=== PATIENT | female | born 1940 | race Hispanic/Latino ===

== ENCOUNTER 2017-01-16 10:56 | Day surgery (SDC) | payer MEDICARE, BC ==
[2017-01-08 09:12] VITALS: BMI 25.3
[2017-01-16] MEDS ORDERED: Propofol 10 mg/ml Inj (20 ML) ONE (11:42)
[2017-01-16] MEDS ORDERED: Sodium Chloride 0.9% 1,000 ML IV SCH (12:15)
[2017-01-16 14:40] VITALS: BP 139/76; PULSE 64; RESP 16; TEMP 97.6; O2SAT 98
== END 2017-01-16 13:40 | disposition home or self-care (01) ==
LOC: ENDO 10:56
PROVIDERS: ATTEND Internal Medicine Gastroenterology
DX: K25.9 Gastric ulcer, unspecified as acute or chronic, without hemorrhage or perforation (principal); K26.9 Duodenal ulcer, unspecified as acute or chronic, without hemorrhage or perforation; K29.50 Unspecified chronic gastritis without bleeding; E11.9 Type 2 diabetes mellitus without complications; E78.5 Hyperlipidemia, unspecified
CPT/HCPCS: 43239; 88305; 88312; 88342; J2001; J2704; J3010; J7040 ×2

== ENCOUNTER 2017-03-20 09:17 | Day surgery (SDC) | payer MEDICARE, BC ==
[2017-03-20 09:48] VITALS: BMI 25.3
[2017-03-20] MEDS ORDERED: Propofol 10 mg/ml Inj (20 ML) ONE (10:49)
[2017-03-20] MEDS ORDERED: Lidocaine 1% Inj (20ml) ONE (10:49)
[2017-03-20] MEDS ORDERED: Sodium Chloride 0.9% 1,000 ML IV SCH (11:15)
[2017-03-20 11:29] VITALS: PULSE 63
[2017-03-20 12:05] VITALS: BP 155/81; RESP 18; TEMP 98.6; O2SAT 98
== END 2017-03-20 12:47 | disposition home or self-care (01) ==
LOC: ENDO 09:17
PROVIDERS: ATTEND Internal Medicine Gastroenterology
DX: K21.0 Gastro-esophageal reflux disease with esophagitis (principal); K29.50 Unspecified chronic gastritis without bleeding; K31.7 Polyp of stomach and duodenum; E11.9 Type 2 diabetes mellitus without complications; E78.5 Hyperlipidemia, unspecified
CPT/HCPCS: 43239; 82948; 88305; 88312; 88342; J2704; J7040 ×2

== ENCOUNTER 2018-07-28 09:27 | Day surgery (SDC) | payer MEDICARE, BC ==
[2018-07-28] MEDS ORDERED: Propofol 10 mg/ml Inj (20 ML) ONE (10:52)
[2018-07-28 13:09] VITALS: PULSE 69
[2018-07-28 14:27] VITALS: BP 140/76; RESP 16; TEMP 97.9; O2SAT 97
== END 2018-07-28 14:02 | disposition home or self-care (01) ==
LOC: ENDO 09:27
PROVIDERS: ATTEND Internal Medicine Gastroenterology
DX: K22.70 Barrett's esophagus without dysplasia (principal); K29.50 Unspecified chronic gastritis without bleeding; E11.9 Type 2 diabetes mellitus without complications
CPT/HCPCS: 43239; 88305; 88312; 88342; J2704; J7040

== ENCOUNTER 2018-11-12 18:48 | Inpatient (IN) | payer MEDICARE, BC ==
[2018-11-12 19:22] VITALS: BMI 27.4
[2018-11-12 20:11] LABS: BASO # 0.04 K/mm3 (0.0-2.0); BASO % 0.3 % (0.0-3.0); EOS # 0.2 (0.0-0.7); EOS % 1.3 % (1.5-5.0); HEMOGLOBIN 14.7 g/dL (12.0-16.0); LYMPH # 3.5 (1.2-3.4); LYMPH % 23.4 % (22.0-35.0); MEAN CELL VOLUME 87.3 fl (80.0-105.0); MEAN CORPUSCULAR HEMOGLOBIN 30.1 pg (25.0-35.0); MEAN CORPUSCULAR HGB CONC 34.4 g/dl (31.0-37.0); MEAN PLATELET VOLUME 9.9 fl (7.0-11.0); MONO # 0.8 (0.1-0.6); MONO % 5.6 % (1.0-6.0); RBC 4.89 10^6/uL (3.5-6.1); RED CELL DISTRIBUTION WIDTH 12.9 % (11.5-14.5); WHITE BLOOD COUNT 14.9 10^3/uL (4.5-11.0)
[2018-11-12 20:15] LABS: ALB/GLOB RATIO 1.4 (1.1-1.8); ALBUMIN 4.4 g/dL (3.0-4.8); ALT/SGPT 32 U/L (7-56); AST/SGOT 33 U/L (14-36); BLOOD UREA NITROGEN 19 mg/dL (7-21); GFR NON-AFRICAN AMERICAN > 60
[2018-11-12 20:22] LABS: INR 1.16; PARTIAL THROMBOPLASTIN TIME 33.3 Seconds (26.9-38.3); PROTHROMBIN TIME 12.9 SECONDS (9.4-12.5)
[2018-11-12 20:26] LABS: TROPONIN I < 0.01 ng/mL
[2018-11-12 21:05] LABS: URINE BILIRUBIN NEGATIVE (NEGATIVE); URINE BLOOD NEGATIVE (NEGATIVE); URINE GLUCOSE (UA) NEGATIVE (NEGATIVE); URINE LEUKOCYTE ESTERASE MODERATE Leu/uL (NEGATIVE); URINE PROTEIN TRACE mg/dL (<30 mg/dL); URINE UROBILINOGEN 0.2 E.U./dL (<1 E.U./dL)
[2018-11-12 21:06] LABS: URINE APPEARANCE CLEAR (CLEAR); URINE COLOR LIGHT YELLOW (YELLOW)
[2018-11-12 21:09] LABS: URINE BACTERIA FEW /hpf
[2018-11-12] MEDS ORDERED: cefTRIAXone 1 gm 1 GM/100 ML BAG IVPB STA (21:13)
--- NOTE | 2018-11-12 22:06 | ED PDOC ---
Arrival/HPI - General Chief Complaint: Syncope Time Seen by Provider: 11/12/18 19:14 Historian: Patient, Spouse - History of Present Illness Narrative History of Present Illness (Text): 11/12/18 22:10 78 year old female, with history of hypertension and diabetes, presents to emergency department from home s/p reported syncopal episode. Patient reports she was in the bedroom putting her dog's toys away, and woken up by her after. It is unclear what happened during the incident. He notes she was at baseline before and after the episode. Patient currently complains of back pain but denies any other complaints. Time/Duration: Prior to Arrival Symptom Onset: Gradual Symptom Course: Unchanged Activities at Onset: Light Context: Home Past Medical History - Provider Review Nursing Documentation Reviewed: Yes - Infectious Disease Hx of Infectious Diseases: None - Cardiac Hx Hypertension: Yes Hx Pacemaker: No - Neurological Hx Paralysis: No - Endocrine/Metabolic Hx Diabetes Mellitus Type 2: Yes - Hematological/Oncological Hx Blood Transfusions: No Hx Blood Transfusion Reaction: No Other/Comment: Hematochromatosis - Musculoskeletal/Rheumatological Hx Musculoskeletal Disorders: Yes - Psychiatric Hx Emotional Abuse: No Hx Physical Abuse: No Hx Substance Use: No - Surgical History Hx Cholecystectomy: Yes Other/Comment: Back surgery. Colon surgery. Knee surgery - Anesthesia Hx Anesthesia Reactions: No Hx Malignant Hyperthermia: No - Suicidal Assessment Feels Threatened In Home Enviroment: No Family/Social History - Physician Review Nursing Documentation Reviewed: Yes Family/Social History: Unknown Family HX Smoking Status: Never Smoked Hx Alcohol Use: Yes (ON OCCASION) Hx Substance Use: No Allergies/Home Meds Allergies/Adverse Reactions: Allergies No Known Allergies Allergy (Verified 11/12/18 19:22) Home Medications: Home Meds Medication Instructions Recorded Confirmed Aspirin [Aspir 81] 81 mg PO MWF 04/22/12 11/12/18 [place]-3/Dha/Epa/Fish Oil [[place]-3 500 mg PO BID 04/22/12 11/12/18 Fish Oil] Ezetimibe [Zetia] 10 mg PO DAILY 10/16/15 11/12/18 Multivit-Min/Iron/Folic/Lutein 1 tab PO BID 10/16/15 11/12/18 [Centrum Silver Women Tablet] buPROPion XL [Wellbutrin] 150 mg PO QAM 10/16/15 11/12/18 Calcium Carbonate [Calcium] 500 mg PO BID 01/08/17 11/12/18 Repaglinide [Prandin] 2 mg PO TID 01/08/17 11/12/18 Turmeric Root Extract [[facility] 500 mg PO DAILY 03/20/17 11/12/18 Turmeric] GlipiZIDE [Glipizide] 5 mg PO BID 07/22/18 11/12/18 Insulin Glargine, Recombina 24 unit SC HS 07/28/18 11/12/18 [Lantus] Ranitidine HCl [Zantac] 150 mg PO BID 07/28/18 11/12/18 Sertraline [Zoloft] 50 mg PO DAILY 07/28/18 11/12/18 Glucosamine Sulfate Dipot Chlr 1 tab PO BID 11/12/18 11/12/18 [Glucosamine] Lisinopril [Zestril] 10 mg PO DAILY 11/12/18 11/12/18 Review of Systems - Physician Review All systems were reviewed & negative as marked: Yes - Review of Systems Constitutional: absent: Fevers Respiratory: absent: SOB, Cough Cardiovascular: absent: Chest Pain Gastrointestinal: absent: Abdominal Pain, Diarrhea, Nausea, Vomiting Genitourinary Female: absent: Urine Output Changes Musculoskeletal: Back Pain. absent: Neck Pain Skin: absent: Rash Neurological: absent: Headache, Dizziness Physical Exam Vital Signs Reviewed: Yes Vital Signs Temp Pulse Resp BP Pulse Ox 11/12/18 21:07 82 16 139/69 95 11/12/18 19:30 98.7 F 92 H 18 146/83 95 Temperature: Afebrile Blood Pressure: Normal Pulse: Regular Respiratory Rate: Normal Appearance: Positive for: Well-Appearing, Non-Toxic, Comfortable Pain Distress: None Mental Status: Positive for: Alert and Oriented X 3 - Systems Exam Head: Present: Atraumatic, Normocephalic Pupils: Present: PERRL Extroacular Muscles: Present: EOMI Conjunctiva: Present: Normal Mouth: Present: Moist Mucous Membranes Neck: Present: Normal Range of Motion Respiratory/Chest: Present: Clear to Auscultation, Good Air Exchange. No: Respiratory Distress, Accessory Muscle Use Cardiovascular: Present: Regular Rate and Rhythm, Normal S1, S2. No: Murmurs Abdomen: No: Tenderness, Distention, Peritoneal Signs Back: Present: Other (paralumbar and parathoracic tenderness, no stepoff ). No: Midline Tenderness Upper Extremity: Present: Normal Inspection. No: Cyanosis, Edema Lower Extremity: Present: Normal Inspection. No: Edema Neurological: Present: GCS=15, CN II-XII Intact, Speech Normal Skin: Present: Warm, Dry, Normal Color. No: Rashes Psychiatric: Present: Alert, Oriented x 3, Normal Insight, Normal Concentration Medical Decision Making ED Course and Treatment: 11/12/18 22:19 Impression: 78 year old female presents to emergency department s/p syncopal episode prior to arrival. ro intracrnial cardiac metabolic etiology Plan: -- CT Head -- EKG -- Labs -- Chest X-ray -- Urinalysis -- Reassess and disposition Prior Visits: Notes and results from previous visits were reviewed. Progress Notes: 11/12/18 22:25 CT Head, reviewed by radiologist: IMPRESSION: 1. No acute intracranial abnormality. 2. Mild age-appropriate diffuse cerebral and cerebellar atrophy. 3. Mild chronic microvascular disease. 4. Atherosclerotic vascular plaquing as described above. Electronically signed on Nov 12, 2018 9:41:39 PM EDT by: Killian Harding M.D., M.B.A., Certified By [employer] Trained MRI and CT Specialist 11/12/18 23:46 labs neg. cxr neg as read by me discussed with rosana request hospiatlist admission will consult. - Lab Interpretations Lab Results: PT 12.9 SECONDS (9.4-12.5) H 11/12/18 19:55 INR 1.16 11/12/18 19:55 APTT 33.3 Seconds (26.9-38.3) 11/12/18 19:55 Troponin I < 0.01 ng/mL 11/12/18 19:55 Total Bilirubin 0.4 mg/dL (0.2-1.3) 11/12/18 19:55 AST 33 U/L (14-36) 11/12/18 19:55 ALT 32 U/L (7-56) 11/12/18 19:55 Alkaline Phosphatase 57 U/L (38-126) 11/12/18 19:55 Total Protein 7.5 g/dL (5.8-8.3) 11/12/18 19:55 Albumin 4.4 g/dL (3.0-4.8) 11/12/18 19:55 Globulin 3.1 gm/dL 11/12/18 19:55 Albumin/Globulin Ratio 1.4 (1.1-1.8) 11/12/18 19:55 Urine Color Light yellow (YELLOW) 11/12/18 20:47 Urine Appearance Clear (CLEAR) 11/12/18 20:47 Urine pH 6.0 (4.7-8.0) 11/12/18 20:47 Ur Specific [place] >= 1.030 (1.005-1.035) 11/12/18 20:47 Urine Protein Trace mg/dL (<30 mg/dL) H 11/12/18 20:47 Urine Glucose (UA) Negative mg/dL (NEGATIVE) 11/12/18 20:47 Urine Ketones Negative mg/dL (NEGATIVE) 11/12/18 20:47 Urine Blood Negative (NEGATIVE) 11/12/18 20:47 Urine Nitrate Negative (NEGATIVE) 11/12/18 20:47 Urine Bilirubin Negative (NEGATIVE) 11/12/18 20:47 Urine Urobilinogen 0.2 E.U./dL (<1 E.U./dL) 11/12/18 20:47 Ur Leukocyte Esterase Moderate [place]ac[place]a/uL (NEGATIVE) H 11/12/18 20:47 Urine RBC None /hpf (0-2) 11/12/18 20:47 Urine WBC 10 - 15 /hpf (0-6) H 11/12/18 20:47 Ur Epithelial Cells None /hpf (0-5) 11/12/18 20:47 Urine Bacteria Few /hpf (NONE) 11/12/18 20:47 - RAD Interpretation Radiology Orders: 11/12/18 19:35 HEAD W/O CONTRAST [CT] Stat CHEST PORTABLE [RAD] Stat DORSAL (THORACIC) SPINE [RAD] Stat LS SPINE AP/LAT [RAD] Stat - Medication Orders Current Medication Orders: Ceftriaxone Sodium (Rocephin 1 Gram Ivpb) 1 gm in 100 mls @ 100 mls/hr IVPB STAT STA; Protocol Stop: 11/12/18 22:12 Last Admin: 11/12/18 21:29 Dose: 100 mls/hr eMAR Start Stop Document 11/12/18 21:29 KV (Rec: 11/12/18 21:29 KV [id number]) Intravenous Solution Start Date 11/12/18 Start Time 21:29 Discontinued Medications Ceftriaxone Sodium (Rocephin 1 Gram Ivpb) 1 gm in 100 mls @ 100 mls/hr IVPB DAILY LENY; Protocol Ketorolac Tromethamine (Toradol) 30 mg IVP STAT STA Stop: 11/12/18 21:48 Last Admin: 11/12/18 21:55 Dose: 30 mg MAR Pain Assessment Document 11/12/18 21:55 KV (Rec: 11/12/18 21:55 KV [id number]) Pain Reassessment Is this a pain reassessment? No Sleep Is patient sleeping during reassessment? No Presence of Pain Presence of Pain Yes Pain Scale Used Protocol: PSCALES Pain Scale Used Numeric Location Left, Right or Bilateral Left Upper or Lower Lower Pain Location Body Site Back Description Description Constant Intensity of Pain at present 6 IVP Administration Document 11/12/18 21:55 KV (Rec: 11/12/18 21:55 KV [id number]) Charges for Administration # of IVP Administrations 1 - Scribe Statement The provider has reviewed the documentation as recorded by the Scribe Neeraj Peter All medical record entries made by the Scribe were at my direction and personally dictated by me. I have reviewed the chart and agree that the record accurately reflects my personal performance of the history, physical exam, medical decision making, and the department course for this patient. I have also personally directed, reviewed, and agree with the discharge instructions and disposition. Disposition/Present on Arrival - Present on Arrival Any Indicators Present on Arrival: No History of DVT/PE: No History of Uncontrolled Diabetes: No Urinary Catheter: No History of Decub. Ulcer: No History Surgical Site Infection Following: None - Disposition Have Diagnosis and Disposition been Completed?: Yes Diagnosis: Syncope Disposition: HOSPITALIZED Disposition Time: 22:00 Condition: STABLE
--- NOTE | 2018-11-12 22:27 | CP.PCM.HP ---
<JajaaydinfranceLatasha - Last Filed: 11/12/18 23:15> History of Present Illness - History of Present Illness History of Present Illness: PGY1 Medicine History and Physical Exam Note for Dr. Montoya Patient is a 78 year old female, with history of HTN, hemochromatosis, and d iabetes who presents to [facility] ED s/p reported syncopal episode. Patient reports she was in the bedroom putting her dog's toys away, and woken up by her after. It is unclear what happened during the incident. Per Patient's , the patient was at baseline before and after the episode. Patient admits to LOC and hitting her head, however she denies bruising, laceration, chest pain, shortness of breath, abdominal pain, nausea, vomiting, diarrhea, dysuria, fever, and/or chills. PMH: hemochromatosis, Diabetes, HTN PSH: Allergies: Medications: per MAR Social Hx: Family Hx PMD: Dr. Amaro Heme-Onc: Dr. Cervantes Syncope, unknown etiology - Cardiology consulted (Dr. Lee); recommendations appreciated - Neurology consulted (Dr. Meng); recommendations appreciated - F/U CMP, Mg, Phos, Vitamin B12, Folate, TSH - Troponin Q6H x2 - EKG Q6H x2 - Neuro checks Q4 - Fall precaution - Orthostatics - Monitor Leukocytosis - Afebrile - 1 dose ABX given in ED - F/U Urine culture - F/U Blood culture - Monitor CBC Abnormal Urinalysis - F/U Urine culture - Antibiotics HTN - Continue home medications - Monitor Diabetes Mellitus - ISS - Hypoglycemic protocol - ACCU checks ACHS - Low carb diet - F/U Hemoglobin A1C - Monitor PPx: - GI: pepcid daily - DVT: SCD Present on Admission - Present on Admission Any Indicators Present on Admission: No History of DVT/PE: No History of Uncontrolled Diabetes: No Urinary Catheter: No Decubitus Ulcer Present: No Review of Systems - Review of Systems All systems: reviewed and no additional remarkable complaints except (as mentioned in HPI) Past Patient History - Infectious Disease Hx of Infectious Diseases: None - Past Social History Smoking Status: Never Smoked - CARDIAC Hx Hypertension: Yes Hx Pacemaker: No - NEUROLOGICAL Hx Paralysis: No - ENDOCRINE/METABOLIC Hx Diabetes Mellitus Type 2: Yes - HEMATOLOGICAL/ONCOLOGICAL Hx Blood Transfusions: No Hx Blood Transfusion Reaction: No Other/Comment: Hematochromatosis - MUSCULOSKELETAL/RHEUMATOLOGICAL Hx Musculoskeletal Disorders: Yes - PSYCHIATRIC Hx Emotional Abuse: No Hx Physical Abuse: No Hx Substance Use: No - SURGICAL HISTORY Hx Cholecystectomy: Yes Other/Comment: Back surgery. Colon surgery. Knee surgery - ANESTHESIA Hx Anesthesia Reactions: No Hx Malignant Hyperthermia: No Meds Allergies/Adverse Reactions: Allergies Allergy/AdvReac Type Severity Reaction Status Date / Time No Known Allergies Allergy Verified 11/12/18 19:22 Physical Exam - Constitutional Appears: Non-toxic, No Acute Distress - Head Exam Head Exam: ATRAUMATIC, NORMAL INSPECTION, NORMOCEPHALIC - Eye Exam Eye Exam: EOMI, Normal appearance, PERRL Pupil Exam: NORMAL ACCOMODATION - ENT Exam ENT Exam: Mucous Membranes Dry, Normal Exam - Neck Exam Neck exam: Positive for: Normal Inspection - Respiratory Exam Respiratory Exam: Clear to Auscultation Bilateral, NORMAL BREATHING PATTERN. absent: Accessory Muscle Use, Chest Wall Tenderness, Rhonchi, Wheezes, Respirato ry Distress - Cardiovascular Exam Cardiovascular Exam: REGULAR RHYTHM, +S1, +S2 - GI/Abdominal Exam GI & Abdominal Exam: Normal Bowel Sounds, Soft. absent: Tenderness - Extremities Exam Extremities exam: Positive for: normal inspection, pedal pulses present. Negative for: pedal edema, tenderness - Back Exam Back exam: paraspinal tenderness - Neurological Exam Neurological exam: Alert, CN II-XII Intact, Oriented x3 - Psychiatric Exam Psychiatric exam: Normal Affect, Normal Mood - Skin Skin Exam: Dry, Intact, Normal Color, Warm Results - Vital Signs Recent Vital Signs: Last Vital Signs Temp 98.7 F 11/12/18 19:30 Pulse 82 11/12/18 21:07 Resp 16 11/12/18 21:07 BP 139/69 11/12/18 21:07 Pulse Ox 95 11/12/18 21:07 - Labs Result Diagrams: 11/12/18 19:55 11/12/18 19:55 Labs: Laboratory Results - last 24 hr 11/12/18 11/12/18 11/12/18 19:55 19:55 19:55 WBC 14.9 H RBC 4.89 Hgb 14.7 Hct 42.7 MCV 87.3 MCH 30.1 MCHC 34.4 RDW 12.9 Plt Count 253 MPV 9.9 Neut % (Auto) 69.4 H Lymph % (Auto) 23.4 [place] % (Auto) 5.6 Eos % (Auto) 1.3 L Baso % (Auto) 0.3 Lymph # (Auto) 3.5 H [place] # (Auto) 0.8 H Eos # (Auto) 0.2 Baso # (Auto) 0.04 Absolute Neuts (auto) 10.36 H PT 12.9 H INR 1.16 APTT 33.3 Sodium 135 Potassium 5.1 H Chloride 99 Carbon Dioxide 27 Anion Gap 14 BUN 19 Creatinine 0.5 L Est GFR ( Amer) > 60 Est GFR (Non-Af Amer) > 60 Random Glucose 193 H Calcium 10.0 Magnesium 1.8 Total Bilirubin 0.4 AST 33 ALT 32 Alkaline Phosphatase 57 Lactate Dehydrogenase 433 Total Creatine Kinase 72 Troponin I < 0.01 Total Protein 7.5 Albumin 4.4 Globulin 3.1 Albumin/Globulin Ratio 1.4 Urine Color Urine Appearance Urine pH Ur Specific [place] Urine Protein Urine Glucose (UA) Urine Ketones Urine Blood Urine Nitrate Urine Bilirubin Urine Urobilinogen Ur Leukocyte Esterase Urine RBC Urine WBC Ur Epithelial Cells Urine Bacteria 11/12/18 20:47 WBC RBC Hgb Hct MCV MCH MCHC RDW Plt Count MPV Neut % (Auto) Lymph % (Auto) [place] % (Auto) Eos % (Auto) Baso % (Auto) Lymph # (Auto) [place] # (Auto) Eos # (Auto) Baso # (Auto) Absolute Neuts (auto) PT INR APTT Sodium Potassium Chloride Carbon Dioxide Anion Gap BUN Creatinine Est GFR ( Amer) Est GFR (Non-Af Amer) Random Glucose Calcium Magnesium Total Bilirubin AST ALT Alkaline Phosphatase Lactate Dehydrogenase Total Creatine Kinase Troponin I Total Protein Albumin Globulin Albumin/Globulin Ratio Urine Color Light yellow Urine Appearance Clear Urine pH 6.0 Ur Specific [place] >= 1.030 Urine Protein Trace H Urine Glucose (UA) Negative Urine Ketones Negative Urine Blood Negative Urine Nitrate Negative Urine Bilirubin Negative Urine Urobilinogen 0.2 Ur Leukocyte Esterase Moderate H Urine RBC None Urine WBC 10 - 15 H Ur Epithelial Cells None Urine Bacteria Few Assessment & Plan - Assessment and Plan (Free Text) Assessment: Syncope, unknown etiology - Cardiology consulted (Dr. Lee); recommendations appreciated - Neurology consulted (Dr. Meng); recommendations appreciated - F/U CMP, Mg, Phos, Vitamin B12, Folate, TSH - Troponin Q6H x2 - F/U ECHO - F/U carotid duplex - Neuro checks Q4 - Fall precaution - Orthostatics vitals - Monitor Leukocytosis - Afebrile - 1 dose ABX given in ED - F/U Urine culture - F/U Blood culture - Monitor CBC Abnormal Urinalysis - F/U Urine culture - Hold off on antibiotics at this time HTN - Continue home medications - Monitor Diabetes Mellitus - ISS - Hypoglycemic protocol - ACCU checks ACHS - Low carb diet - F/U Hemoglobin A1C - Monitor PPx: - GI: pepcid daily - DVT: SCD <Gene Wang - Last Filed: 11/13/18 00:54> Results - Vital Signs Recent Vital Signs: Last Vital Signs Temp 98.7 F 11/12/18 19:30 Pulse 85 11/13/18 00:09 Resp 16 11/13/18 00:09 BP 107/67 11/13/18 00:09 Pulse Ox 96 11/13/18 00:09 - Labs Result Diagrams: 11/12/18 19:55 11/12/18 19:55 Labs: Laboratory Results - last 24 hr 11/12/18 11/12/18 11/12/18 19:55 19:55 19:55 WBC 14.9 H RBC 4.89 Hgb 14.7 Hct 42.7 MCV 87.3 MCH 30.1 MCHC 34.4 RDW 12.9 Plt Count 253 MPV 9.9 Neut % (Auto) 69.4 H Lymph % (Auto) 23.4 [place] % (Auto) 5.6 Eos % (Auto) 1.3 L Baso % (Auto) 0.3 Lymph # (Auto) 3.5 H [place] # (Auto) 0.8 H Eos # (Auto) 0.2 Baso # (Auto) 0.04 Absolute Neuts (auto) 10.36 H PT 12.9 H INR 1.16 APTT 33.3 Sodium 135 Potassium 5.1 H Chloride 99 Carbon Dioxide 27 Anion Gap 14 BUN 19 Creatinine 0.5 L Est GFR ( Amer) > 60 Est GFR (Non-Af Amer) > 60 Random Glucose 193 H Calcium 10.0 Magnesium 1.8 Total Bilirubin 0.4 AST 33 ALT 32 Alkaline Phosphatase 57 Lactate Dehydrogenase 433 Total Creatine Kinase 72 Troponin I < 0.01 Total Protein 7.5 Albumin 4.4 Globulin 3.1 Albumin/Globulin Ratio 1.4 Urine Color Urine Appearance Urine pH Ur Specific [place] Urine Protein Urine Glucose (UA) Urine Ketones Urine Blood Urine Nitrate Urine Bilirubin Urine Urobilinogen Ur Leukocyte Esterase Urine RBC Urine WBC Ur Epithelial Cells Urine Bacteria 11/12/18 20:47 WBC RBC Hgb Hct MCV MCH MCHC RDW Plt Count MPV Neut % (Auto) Lymph % (Auto) [place] % (Auto) Eos % (Auto) Baso % (Auto) Lymph # (Auto) [place] # (Auto) Eos # (Auto) Baso # (Auto) Absolute Neuts (auto) PT INR APTT Sodium Potassium Chloride Carbon Dioxide Anion Gap BUN Creatinine Est GFR ( Amer) Est GFR (Non-Af Amer) Random Glucose Calcium Magnesium Total Bilirubin AST ALT Alkaline Phosphatase Lactate Dehydrogenase Total Creatine Kinase Troponin I Total Protein Albumin Globulin Albumin/Globulin Ratio Urine Color Light yellow Urine Appearance Clear Urine pH 6.0 Ur Specific [place] >= 1.030 Urine Protein Trace H Urine Glucose (UA) Negative Urine Ketones Negative Urine Blood Negative Urine Nitrate Negative Urine Bilirubin Negative Urine Urobilinogen 0.2 Ur Leukocyte Esterase Moderate H Urine RBC None Urine WBC 10 - 15 H Ur Epithelial Cells None Urine Bacteria Few
[2018-11-12] MEDS ORDERED: Sodium Chloride 0.9% 1,000 ML IV SCH (23:00)
[2018-11-12] MEDS ORDERED: Dextrose 50% SYRINGE Inj (50 ml) IV PRN (23:16)
[2018-11-13 02:38] LABS: TROPONIN I < 0.01 ng/mL
--- NOTE | 2018-11-13 06:00 | CP.PCM.HP ---
<Latasha Merino - Last Filed: 11/13/18 05:54> History of Present Illness - History of Present Illness History of Present Illness: PGY1 Medicine History and Physical Exam Note for Dr. Montoya Patient is a 78-year-old F with PMH of HTN, hemochromatosis, and diabetes who presents to [facility] s/p a reported syncopal episode. Patient says she was getting ready for bed in bedroom putting her dog's toys away, and this is the last thing she recalls. Per Patient, her next recollection was being woken up by her . Patient admits to LOC, and says she hit her head. Patient says this is the second incident that was similar. Patient admits to back pain and left shoulder pain after the incident. Patient denies bowel and/or urine incontinence, biting of tongue, fatigue, drowsiness, numbness/tingling in extremities, headache, chest pain, shortness of breath, abdominal pain, fever, chills, nausea/vomiting/diarrhea. Patient denies dysuria and/or increased frequency. Patient says that her confirms that she was at baseline before and after the episode. PMH: hemochromatosis, Diabetes, HTN PSH: back surgery, ex lap (adenoma resection) Allergies: NKDA Medications: per MAR Social Hx: Denies ETOH, Tobacco, and Recreational Drug use Family Hx: Unknown Present on Admission - Present on Admission Any Indicators Present on Admission: No History of DVT/PE: No History of Uncontrolled Diabetes: No Urinary Catheter: No Decubitus Ulcer Present: No Review of Systems - Review of Systems All systems: reviewed and no additional remarkable complaints except (as mentioned in HPI) Past Patient History - Infectious Disease Hx of Infectious Diseases: None - Past Social History Smoking Status: Never Smoked - CARDIAC Hx Cardiac Disorders: Yes Hx Hypertension: Yes - PULMONARY Hx Respiratory Disorders: No - NEUROLOGICAL Hx Neurological Disorder: No - HEENT Hx HEENT Problems: Yes Hx Deafness: Yes - RENAL Hx Chronic Kidney Disease: No - ENDOCRINE/METABOLIC Hx Endocrine Disorders: Yes Hx Diabetes Mellitus Type 2: Yes - HEMATOLOGICAL/ONCOLOGICAL Hx Blood Disorders: No - INTEGUMENTARY Hx Dermatological Problems: No - MUSCULOSKELETAL/RHEUMATOLOGICAL Hx Musculoskeletal Disorders: No Hx Falls: Yes - GASTROINTESTINAL Hx Gastrointestinal Disorders: No - GENITOURINARY/GYNECOLOGICAL Hx Genitourinary Disorders: No - PSYCHIATRIC Hx Emotional Abuse: No Hx Physical Abuse: No Hx Substance Use: No - SURGICAL HISTORY Hx Surgeries: Yes Hx Appendectomy: Yes - ANESTHESIA Hx Anesthesia Reactions: No Hx Malignant Hyperthermia: No Meds Allergies/Adverse Reactions: Allergies Allergy/AdvReac Type Severity Reaction Status Date / Time No Known Allergies Allergy Verified 11/12/18 19:22 Physical Exam - Constitutional Appears: Non-toxic, No Acute Distress - Head Exam Head Exam: ATRAUMATIC, NORMAL INSPECTION - Eye Exam Eye Exam: EOMI, Normal appearance, PERRL Pupil Exam: NORMAL ACCOMODATION - ENT Exam ENT Exam: Mucous Membranes Moist, Normal Exam - Neck Exam Neck exam: Positive for: Normal Inspection - Respiratory Exam Respiratory Exam: Clear to Auscultation Bilateral, NORMAL BREATHING PATTERN. absent: Chest Wall Tenderness, Decreased Breath Sounds, Rhonchi, Wheezes - Cardiovascular Exam Cardiovascular Exam: REGULAR RHYTHM, +S1, +S2 - GI/Abdominal Exam GI & Abdominal Exam: Normal Bowel Sounds, Soft. absent: Tenderness - Back Exam Back exam: FULL ROM, NORMAL INSPECTION, tenderness (left paraspinal tenderness ) - Neurological Exam Neurological exam: Alert, CN II-XII Intact, Oriented x3 - Psychiatric Exam Psychiatric exam: Normal Affect, Normal Mood - Skin Skin Exam: Dry, Intact, Normal Color, Warm Results - Vital Signs Recent Vital Signs: Last Vital Signs Temp 98.7 F 11/12/18 19:30 Pulse 85 11/13/18 00:09 Resp 18 11/13/18 01:14 BP 107/67 11/13/18 00:09 Pulse Ox 96 11/13/18 00:09 - Labs Result Diagrams: 11/12/18 19:55 11/12/18 19:55 Labs: Laboratory Results - last 24 hr 11/12/18 11/12/18 11/12/18 19:55 19:55 19:55 WBC 14.9 H RBC 4.89 Hgb 14.7 Hct 42.7 MCV 87.3 MCH 30.1 MCHC 34.4 RDW 12.9 Plt Count 253 MPV 9.9 Neut % (Auto) 69.4 H Lymph % (Auto) 23.4 [place] % (Auto) 5.6 Eos % (Auto) 1.3 L Baso % (Auto) 0.3 Lymph # (Auto) 3.5 H [place] # (Auto) 0.8 H Eos # (Auto) 0.2 Baso # (Auto) 0.04 Absolute Neuts (auto) 10.36 H PT 12.9 H INR 1.16 APTT 33.3 Sodium 135 Potassium 5.1 H Chloride 99 Carbon Dioxide 27 Anion Gap 14 BUN 19 Creatinine 0.5 L Est GFR ( Amer) > 60 Est GFR (Non-Af Amer) > 60 Random Glucose 193 H Calcium 10.0 Magnesium 1.8 Total Bilirubin 0.4 AST 33 ALT 32 Alkaline Phosphatase 57 Lactate Dehydrogenase 433 Total Creatine Kinase 72 Troponin I < 0.01 Total Protein 7.5 Albumin 4.4 Globulin 3.1 Albumin/Globulin Ratio 1.4 TSH 3rd Generation Urine Color Urine Appearance Urine pH Ur Specific [place] Urine Protein Urine Glucose (UA) Urine Ketones Urine Blood Urine Nitrate Urine Bilirubin Urine Urobilinogen Ur Leukocyte Esterase Urine RBC Urine WBC Ur Epithelial Cells Urine Bacteria 11/12/18 11/13/18 11/13/18 20:47 02:00 02:00 WBC RBC Hgb Hct MCV MCH MCHC RDW Plt Count MPV Neut % (Auto) Lymph % (Auto) [place] % (Auto) Eos % (Auto) Baso % (Auto) Lymph # (Auto) [place] # (Auto) Eos # (Auto) Baso # (Auto) Absolute Neuts (auto) PT INR APTT Sodium Potassium Chloride Carbon Dioxide Anion Gap BUN Creatinine Est GFR ( Amer) Est GFR (Non-Af Amer) Random Glucose Calcium Magnesium Total Bilirubin AST ALT Alkaline Phosphatase Lactate Dehydrogenase Total Creatine Kinase 69 Troponin I < 0.01 Total Protein Albumin Globulin Albumin/Globulin Ratio TSH 3rd Generation 1.53 Urine Color Light yellow Urine Appearance Clear Urine pH 6.0 Ur Specific [place] >= 1.030 Urine Protein Trace H Urine Glucose (UA) Negative Urine Ketones Negative Urine Blood Negative Urine Nitrate Negative Urine Bilirubin Negative Urine Urobilinogen 0.2 Ur Leukocyte Esterase Moderate H Urine RBC None Urine WBC 10 - 15 H Ur Epithelial Cells None Urine Bacteria Few Assessment & Plan - Assessment and Plan (Free Text) Assessment: Syncope, unknown etiology - Cardiology consulted (Dr. Lee); recommendations appreciated - F/U CMP, Mg, Phos, - Troponin Q6H x2 - F/U ECHO - F/U carotid duplex - Neuro checks Q4 - Fall precaution - Orthostatics vitals - Monitor Leukocytosis - Afebrile - 1 dose ABX given in ED - Hold off on ABX at this time, as Patient is asymptomatic - F/U Urine culture - F/U Blood culture - Monitor CBC Abnormal Urinalysis - 1 dose ABX given in ED - Hold off on ABX at this time, as Patient is asymptomatic - F/U Urine culture HTN - Continue home medications - Monitor Diabetes Mellitus - ISS - Hypoglycemic protocol - ACCU checks ACHS - Low carb diet - F/U Hemoglobin A1C - Monitor PPx: - GI: pepcid daily - DVT: SCD Patient seen and case discussed with Dr. Lindsay Merino PGY1 <Luke Montoya - Last Filed: 11/14/18 06:23> Results - Vital Signs Recent Vital Signs: Last Vital Signs Temp 98.3 F 11/14/18 05:48 Pulse 74 11/14/18 05:48 Resp 19 11/14/18 05:48 BP 135/72 11/14/18 05:48 Pulse Ox 96 11/14/18 05:48 - Labs Result Diagrams: 11/13/18 06:30 11/13/18 06:30 Labs: Laboratory Results - last 24 hr 11/12/18 11/13/18 11/13/18 22:22 06:30 06:30 WBC 12.3 H RBC 4.53 Hgb 13.4 Hct 39.7 MCV 87.6 MCH 29.6 MCHC 33.8 RDW 13.1 Plt Count 220 MPV 9.7 Neut % (Auto) 61.9 Lymph % (Auto) 28.8 [place] % (Auto) 7.2 H Eos % (Auto) 1.9 Baso % (Auto) 0.2 Lymph # (Auto) 3.5 H [place] # (Auto) 0.9 H Eos # (Auto) 0.2 Baso # (Auto) 0.03 Absolute Neuts (auto) 7.62 H Sodium Potassium Chloride Carbon Dioxide Anion Gap BUN Creatinine Est GFR ( Amer) Est GFR (Non-Af Amer) POC Glucose (mg/dL) Random Glucose Hemoglobin A1c 8.1 H Calcium Phosphorus Magnesium Total Bilirubin AST ALT Alkaline Phosphatase Troponin I Total Protein Albumin Globulin Albumin/Globulin Ratio Procalcitonin < 0.05 L 11/13/18 11/13/18 11/13/18 06:30 06:30 07:39 WBC RBC Hgb Hct MCV MCH MCHC RDW Plt Count MPV Neut % (Auto) Lymph % (Auto) [place] % (Auto) Eos % (Auto) Baso % (Auto) Lymph # (Auto) [place] # (Auto) Eos # (Auto) Baso # (Auto) Absolute Neuts (auto) Sodium 136 Potassium 4.6 Chloride 101 Carbon Dioxide 26 Anion Gap 14 BUN 18 Creatinine 0.6 L Est GFR ( Amer) > 60 Est GFR (Non-Af Amer) > 60 POC Glucose (mg/dL) 159 H Random Glucose 152 H Hemoglobin A1c Calcium 9.0 Phosphorus 3.9 Magnesium 1.9 Total Bilirubin 0.4 AST 32 ALT 25 Alkaline Phosphatase 48 Troponin I < 0.01 Total Protein 6.9 Albumin 3.8 Globulin 3.1 Albumin/Globulin Ratio 1.2 Procalcitonin 11/13/18 11/13/18 11:32 17:00 WBC RBC Hgb Hct MCV MCH MCHC RDW Plt Count MPV Neut % (Auto) Lymph % (Auto) [place] % (Auto) Eos % (Auto) Baso % (Auto) Lymph # (Auto) [place] # (Auto) Eos # (Auto) Baso # (Auto) Absolute Neuts (auto) Sodium Potassium Chloride Carbon Dioxide Anion Gap BUN Creatinine Est GFR ( Amer) Est GFR (Non-Af Amer) POC Glucose (mg/dL) 238 H 194 H Random Glucose Hemoglobin A1c Calcium Phosphorus Magnesium Total Bilirubin AST ALT Alkaline Phosphatase Troponin I Total Protein Albumin Globulin Albumin/Globulin Ratio Procalcitonin Attending/Attestation - Attestation I have personally seen and examined this patient.: Yes I have fully participated in the care of the patient.: Yes I have reviewed all pertinent clinical information: Yes Notes (Text): 11/14/18 06:22 Seen and examined. discussed with resident. A&P as above.
[2018-11-13 07:33] LABS: BASO # 0.03 K/mm3 (0.0-2.0); BASO % 0.2 % (0.0-3.0); EOS # 0.2 (0.0-0.7); EOS % 1.9 % (1.5-5.0); HEMOGLOBIN 13.4 g/dL (12.0-16.0); LYMPH # 3.5 (1.2-3.4); LYMPH % 28.8 % (22.0-35.0); MEAN CELL VOLUME 87.6 fl (80.0-105.0); MEAN CORPUSCULAR HEMOGLOBIN 29.6 pg (25.0-35.0); MEAN CORPUSCULAR HGB CONC 33.8 g/dl (31.0-37.0); MEAN PLATELET VOLUME 9.7 fl (7.0-11.0); MONO # 0.9 (0.1-0.6); MONO % 7.2 % (1.0-6.0); RBC 4.53 10^6/uL (3.5-6.1); RED CELL DISTRIBUTION WIDTH 13.1 % (11.5-14.5); WHITE BLOOD COUNT 12.3 10^3/uL (4.5-11.0)
[2018-11-13 07:54] LABS: ALB/GLOB RATIO 1.2 (1.1-1.8); ALBUMIN 3.8 g/dL (3.0-4.8); ALT/SGPT 25 U/L (7-56); AST/SGOT 32 U/L (14-36); BLOOD UREA NITROGEN 18 mg/dL (7-21); GFR NON-AFRICAN AMERICAN > 60
[2018-11-13] MEDS: Insulin Reg-MEDIUM-Coverage SC SCH ×4 (08:00→21:43)
--- NOTE | 2018-11-13 08:43 | CT ---
Date of service: 11/12/2018 PROCEDURE: CT HEAD WITHOUT CONTRAST. HISTORY: syncope COMPARISON: None available. TECHNIQUE: Axial computed tomography images were obtained through the head/brain without intravenous contrast. Radiation dose: Total exam DLP = 1587.83 mGy-cm. This CT exam was performed using one or more of the following dose reduction techniques: Automated exposure control, adjustment of the mA and/or kV according to patient size, and/or use of iterative reconstruction technique. FINDINGS: HEMORRHAGE: No intracranial hemorrhage. BRAIN: No mass effect or edema. Chronic microvascular changes are seen in the periventricular white matter. VENTRICLES: Unremarkable. No hydrocephalus. CALVARIUM: Unremarkable. PARANASAL SINUSES: Unremarkable as visualized. No significant inflammatory changes. MASTOID AIR CELLS: Unremarkable as visualized. No inflammatory changes. OTHER FINDINGS: The report concurs with the preliminary [facility] report IMPRESSION: No acute intracranial findings
[2018-11-13] MEDS ORDERED: cefTRIAXone 1 gm 1 GM/100 ML BAG IVPB SCH (10:00)
[2018-11-13] MEDS: Cefpodoxime (Vantin) 100 mg Tab PO SCH ×2 (10:52→21:49)
[2018-11-13] MEDS: Multivitamin With Minerals Tab PO SCH ×2 (10:52→17:32)
[2018-11-13] MEDS: Lidocaine 5% Patch TD SCH (10:52)
--- NOTE | 2018-11-13 10:54 | RAD ---
Date of service: 11/12/2018 HISTORY: fall COMPARISON: No prior. TECHNIQUE: 1 view obtained. FINDINGS: LUNGS: No active pulmonary disease. PLEURA: No significant pleural effusion identified, no pneumothorax apparent. CARDIOVASCULAR: Aortic calcification Normal cardiac size. No pulmonary vascular congestion. OSSEOUS STRUCTURES: No significant abnormalities. VISUALIZED UPPER ABDOMEN: Normal. OTHER FINDINGS: None. IMPRESSION: No active disease.
--- NOTE | 2018-11-13 11:33 | RAD ---
Date of service: 11/12/2018 PROCEDURE: Radiographs of the Lumbar Spine. HISTORY: fall COMPARISON: No prior. TECHNIQUE: 5 views obtained. FINDINGS: BONES: Normal alignment. No listhesis. No fracture. DISC SPACES: Unremarkable. OTHER FINDINGS: Pedicle screws and rods L4, L5 and S1. IMPRESSION: Unremarkable radiographs of the lumbar spine.
--- NOTE | 2018-11-13 11:34 | RAD ---
Date of service: 11/12/2018 HISTORY: fall COMPARISON: No prior. TECHNIQUE: 2 views obtained. FINDINGS: BONES: Alignment maintained. No fracture. DISC SPACES: Multilevel disc degeneration SOFT TISSUES: Normal. OTHER FINDINGS: None. IMPRESSION: No vertebral compression fractures
--- NOTE | 2018-11-13 14:06 | CARD ---
APPROVED REPORT Date of service: 11/13/2018 EXAM: Two-dimensional and M-mode echocardiogram with Doppler and color Doppler. INDICATION Syncope 2D DIMENSIONS Left Atrium (2D)3.7 (1.6-4.0cm)IVSd1.1 (0.7-1.1cm) LVDd4.6 (3.9-5.9cm)PWd1.1 (0.7-1.1cm) LVDs3.0 (2.5-4.0cm)FS (%) 34.6 % LVEF (%)63.7 (>50%) M-Mode DIMENSIONS Aortic Root3.40 (2.2-3.7cm)Aortic Cusp Exc.1.60 (1.5-2.0cm) Aortic Valve AoV Peak Ixsexwdi262.0cm/Paola Peak GR.10mmHg Mitral Valve MV E Bxremnia26.3cm/sMV A Fruiksry45.8cm/sE/A ratio0.8 TDI Lateral E' Peak V8.38cm/sMedial E' Peak V6.14cm/sE/Lateral E'9.0 E/Medial E'12.3 Pulmonary Valve PV Peak Jfgrpqks152.0cm/sPV Peak Grad.4mmHg Tricuspid Valve TR Peak Biwfvzns517vg/sRAP [id number] Peak Gr.21mmHg [id number] LEFT VENTRICLE The left ventricle is normal size. There is borderline concentric left ventricular hypertrophy. The left ventricular function is normal. The left ventricular ejection fraction is within the normal range. There is normal LV segmental wall motion. Transmitral Doppler flow pattern is Grade I-abnormal relaxation pattern. RIGHT VENTRICLE The right ventricle is normal size. There is normal right ventricular wall thickness. The right ventricular systolic function is normal. ATRIA The left atrium size is normal. The right atrium size is normal. AORTIC VALVE The aortic valve is mildly thickened. No aortic regurgitation is present. There is no aortic valvular stenosis. MITRAL VALVE The mitral valve is normal in structure. There is no mitral valve regurgitation noted. There is no mitral valve stenosis. TRICUSPID VALVE The tricuspid valve is normal in structure. There is trace tricuspid regurgitation. PULMONIC VALVE The pulmonary valve is normal in structure. There is no pulmonic valvular regurgitation. GREAT VESSELS The aortic root is normal in size. The IVC is normal in size and collapses >50% with inspiration. PERICARDIAL EFFUSION There is a trace pericardial effusion. <Conclusion> There is borderline concentric left ventricular hypertrophy. The left ventricular function is normal. The left ventricular ejection fraction is within the normal range. There is normal LV segmental wall motion. Transmitral Doppler flow pattern is Grade I-abnormal relaxation pattern.
--- NOTE | 2018-11-13 19:26 | CARD ---
APPROVED REPORT Date of service: 11/13/2018 EKG Measurement Heart [id number] <Conclusion> Normal sinus rhythm Possible Left atrial enlargement Right bundle branch block Left anterior fascicular block Bifascicular block Left ventricular hypertrophy Cannot rule out Septal infarct, age undetermined Abnormal ECG
[2018-11-14 08:02] LABS: BASO # 0.03 K/mm3 (0.0-2.0); BASO % 0.3 % (0.0-3.0); EOS # 0.3 (0.0-0.7); EOS % 2.4 % (1.5-5.0); HEMOGLOBIN 14.4 g/dL (12.0-16.0); LYMPH # 3.5 (1.2-3.4); LYMPH % 31.6 % (22.0-35.0); MEAN CELL VOLUME 88.1 fl (80.0-105.0); MEAN CORPUSCULAR HEMOGLOBIN 29.6 pg (25.0-35.0); MEAN CORPUSCULAR HGB CONC 33.6 g/dl (31.0-37.0); MEAN PLATELET VOLUME 9.7 fl (7.0-11.0); MONO # 0.8 (0.1-0.6); MONO % 6.9 % (1.0-6.0); RBC 4.87 10^6/uL (3.5-6.1); RED CELL DISTRIBUTION WIDTH 13.2 % (11.5-14.5); WHITE BLOOD COUNT 11.2 10^3/uL (4.5-11.0)
[2018-11-14 08:19] LABS: ALB/GLOB RATIO 1.3 (1.1-1.8); ALBUMIN 4.2 g/dL (3.0-4.8); ALT/SGPT 26 U/L (7-56); AST/SGOT 30 U/L (14-36); BLOOD UREA NITROGEN 11 mg/dL (7-21); CALCIUM 9.1 mg/dL (8.4-10.5); GFR NON-AFRICAN AMERICAN > 60
[2018-11-14] MEDS: Insulin Reg-MEDIUM-Coverage SC SCH ×4 (08:26→21:39)
[2018-11-14] MEDS: Lidocaine 5% Patch TD SCH (10:02)
[2018-11-14] MEDS: Multivitamin With Minerals Tab PO SCH ×2 (10:03→17:20)
[2018-11-14] MEDS: Cefpodoxime (Vantin) 100 mg Tab PO SCH ×2 (10:03→21:36)
--- NOTE | 2018-11-14 15:34 | CP.PCM.PN ---
Subjective - Date & Time of Evaluation Date of Evaluation: 11/14/18 Time of Evaluation: 15:33 - Subjective Subjective: PGY-1 Medicine progress note for Dr. Aguirre Patient was seen and examined at bedside. No acute events overnight. Patient is complaining of some back pain. She denies fevers, chills, shortness of breath, chest pain, abdominal pain, nausea, vomiting, diarrhea, or any other symptoms. Objective - Vital Signs/Intake and Output Vital Signs (last 24 hours): Temp Pulse Resp BP Pulse Ox 98.1 F 71 18 168/99 H 96 11/14/18 11:57 11/14/18 14:00 11/14/18 11:57 11/14/18 11:57 11/14/18 05:48 Intake and Output: 11/14/18 11/14/18 06:59 18:59 Intake Total 420 Output Total 3 Balance 417 - Medications Medications: Current Medications Acetaminophen (Tylenol 325mg Tab) 650 mg PO Q6H PRN PRN Reason: Pain, Mild (1-3) Last Admin: 11/14/18 10:34 Dose: 650 mg Cefpodoxime Proxetil (Vantin) 100 mg PO Q12 LEYN; Protocol Stop: 11/16/18 22:01 Last Admin: 11/14/18 10:03 Dose: 100 mg Dextrose (Dextrose 50% Inj) 0 ml IV STAT PRN; Protocol PRN Reason: Hypoglycemia Protocol Ezetimibe (Zetia) 10 mg PO DAILY [facility] Last Admin: 11/14/18 10:03 Dose: 10 mg Famotidine (Pepcid) 20 mg PO BID [facility] Last Admin: 11/14/18 10:03 Dose: 20 mg Dextrose (Dextrose 5% In Water 1000 Ml) 1,000 mls @ 0 mls/hr IV .Q0M PRN; Protocol PRN Reason: Hypoglycemia Protocol Insulin Human Regular (Humulin R Med) 0 units SC ACHS LENY; Protocol Last Admin: 11/14/18 11:34 Dose: 5 unit Lidocaine (Lidoderm) 1 ea TD DAILY [facility] Last Admin: 11/14/18 10:02 Dose: 1 ea Lisinopril (Zestril) 10 mg PO DAILY [facility] Last Admin: 11/14/18 10:03 Dose: 10 mg Multivitamins/Minerals (Therapeutic-M Tab) 1 tab PO BID [facility] Last Admin: 11/14/18 10:03 Dose: 1 tab Sertraline HCl (Zoloft) 50 mg PO DAILY [facility] Last Admin: 11/14/18 10:03 Dose: 50 mg - Labs Labs: 11/14/18 07:00 11/14/18 07:00 PT 12.9 SECONDS (9.4-12.5) H 11/12/18 19:55 INR 1.16 11/12/18 19:55 APTT 33.3 Seconds (26.9-38.3) 11/12/18 19:55 - Additional Findings Additional findings: - Constitutional Appears: Non-toxic, No Acute Distress - Head Exam Head Exam: ATRAUMATIC, NORMAL INSPECTION - Eye Exam Eye Exam: EOMI, Normal appearance, PERRL Pupil Exam: NORMAL ACCOMODATION - ENT Exam ENT Exam: Mucous Membranes Moist, Normal Exam - Neck Exam Neck exam: Positive for: Normal Inspection - Respiratory Exam Respiratory Exam: Clear to Auscultation Bilateral, NORMAL BREATHING PATTERN. absent: Chest Wall Tenderness, Decreased Breath Sounds, Rhonchi, Wheezes - Cardiovascular Exam Cardiovascular Exam: REGULAR RHYTHM, +S1, +S2 - GI/Abdominal Exam GI & Abdominal Exam: Normal Bowel Sounds, Soft. absent: Tenderness - Back Exam Back exam: FULL ROM, NORMAL INSPECTION, tenderness (left paraspinal tenderness ) - Neurological Exam Neurological exam: Alert, CN II-XII Intact, Oriented x3 - Psychiatric Exam Psychiatric exam: Normal Affect, Normal Mood - Skin Skin Exam: Dry, Intact, Normal Color, Warm Assessment and Plan - Assessment and Plan (Free Text) Assessment: Patient is a 78-year-old F with PMH of HTN, hemochromatosis, and diabetes who presenting with syncope. Plan: Syncope - CXR, Head CT, Lumbar & Thoracic spine Xray: negative - ECHO: LVEF 64%, Grade I abnormal relaxation - Follow up carotid duplex - Cardiology consulted, Dr. Lee - Fall precaution - Negative orthostatic hypotension UTI - Patient complaining of dysuria - UA: moderate LE, positive for WBC and bacteria - Urine culture contaminated - Vantin 100mg PO BID (Started on 11/13) Diabetes Mellitus - ISS - Accuchecks ACHS - Hypoglycemic protocol - Hemoglobin A1C: 8.1 Hypertension - Continue home medication Lisinopril - Continue to monitor Hyperlipidemia - Continue home medication Zetia - Follow up lipid panel Depression - Continue home Zoloft Prophylaxis: - GI: pepcid daily - DVT: SCD Patient seen and case discussed with attending, Dr. Aguirre. Omer Hua, PGY-1
--- NOTE | 2018-11-14 19:50 | CON ---
DATE: 11/14/2018 CONSULT SERVICE: Cardiology. REASON FOR DICTATION: COVERING FOR DR. KERMIT DEVRIES. REASON FOR CONSULTATION: Syncope and cardiac evaluation. BRIEF CLINICAL HISTORY: This is a 78-year-old female with past medical history significant for hypertension and hemochromatosis, being followed by Dr. Cervantes, Dr. Merino, and for hypertension Dr. Lawrence, history of diabetes, came to the emergency room after having a syncopal episode. The patient said that she was trying to get in the bed and fixing the toys for the pets, then suddenly she fell down and found herself feeling a little bit dizzy and then she fell down and lost her consciousness; before she fell down, was calling her . This happened four weeks ago, also while the patient was putting some things in her refrigerator. Denies any chest pain; denies any shortness of breath; denies any palpitation. PAST MEDICAL HISTORY: Significant for diabetes, hypertension, and hemochromatosis. PAST SURGICAL HISTORY: Multiple surgeries. 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 SOCIAL HISTORY: Denies any smoking; denies any history of alcohol abuse. CURRENT MEDICATIONS: The patient is taking at home; ranitidine, glucosamine, glipizide, multivitamin, aspirin, Prandin, lisinopril, and Wellbutrin. ALLERGY: NO KNOWN DRUG ALLERGY. REVIEW OF SYSTEMS: As per HPI. PHYSICAL EXAMINATION: GENERAL: Height of the patient 5 feet 3 inches, weight of the patient 157 pounds, and body mass index 27.7 kg/m2. VITAL SIGNS: Temperature afebrile, heart rate 79, and blood pressure 134/81. HEENT: PERRLA. Extraocular muscles intact. NECK: Supple. No carotid bruits or thyromegaly. CHEST: Clear to auscultation. HEART: S1 and S2 regular. ABDOMEN: Soft. EXTREMITIES: Clubbing and cyanosis negative. LABORATORY DATA: EKG shows normal sinus, right bundle-branch block, and left anterior hemiblock. Blood workup; WBC 11, hemoglobin 14.4, hematocrit 42.9, and platelet count 228. Chemistry shows sodium 137, potassium 4.6, chloride 101, carbon dioxide 28, anion gap of 13, BUN 11, and creatinine 0.8. IMPRESSION: A 78-year-old female with past medical history of recurrent syncope twice, one happened at this time and four weeks ago. Some nonspecific intraventricular conduction delay, history of diabetes, and hemochromatosis. So far no evidence of acute myocardial infarction. Troponin remains flat, x3 negative. RECOMMENDATIONS: We will get for orthostatic hypotension, echo to rule out any structural heart disease. If orthostatic hypotension negative, consider electrophysiology tilt table. We will follow. Further recommendations depending upon hospital course and finding of the echo. We will transfer care tomorrow to Dr. Kermit Devries. We will also get lipid profile, TSH, and hemoglobin A1c. We will get a lipid in the a.m. We will get echo to rule out any structural heart disease. Thank you Dr. Aguirre for providing us the opportunity in taking care of the patient, Lissett Guy. Linnette Gamboa MD
[2018-11-14] MEDS ORDERED: Oxycodone/Acetaminophen 5/325 mg Tab PO STA (23:31)
[2018-11-15 07:41] LABS: BASO # 0.03 K/mm3 (0.0-2.0); BASO % 0.2 % (0.0-3.0); EOS # 0.2 (0.0-0.7); EOS % 1.3 % (1.5-5.0); HEMOGLOBIN 15.5 g/dL (12.0-16.0); LYMPH # 3.9 (1.2-3.4); LYMPH % 30.5 % (22.0-35.0); MEAN CELL VOLUME 88.3 fl (80.0-105.0); MEAN CORPUSCULAR HEMOGLOBIN 29.7 pg (25.0-35.0); MEAN CORPUSCULAR HGB CONC 33.6 g/dl (31.0-37.0); MEAN PLATELET VOLUME 9.7 fl (7.0-11.0); RBC 5.22 10^6/uL (3.5-6.1); RED CELL DISTRIBUTION WIDTH 13.1 % (11.5-14.5); WHITE BLOOD COUNT 12.7 10^3/uL (4.5-11.0)
[2018-11-15 08:09] LABS: ALB/GLOB RATIO 1.2 (1.1-1.8); ALBUMIN 4.4 g/dL (3.0-4.8); ALT/SGPT 27 U/L (7-56); AST/SGOT 28 U/L (14-36); BLOOD UREA NITROGEN 13 mg/dL (7-21); CALCIUM 9.2 mg/dL (8.4-10.5); GFR NON-AFRICAN AMERICAN > 60; HDL CHOLESTEROL 49 mg/dL (29-60)
[2018-11-15 08:20] LABS: LDL CHOLESTEROL 94 mg/dL (0-129)
[2018-11-15] MEDS: Insulin Reg-MEDIUM-Coverage SC SCH ×3 (08:29→18:02)
[2018-11-15] MEDS: Cefpodoxime (Vantin) 100 mg Tab PO SCH (09:48)
[2018-11-15] MEDS: Lidocaine 5% Patch TD SCH (09:48)
[2018-11-15] MEDS: Multivitamin With Minerals Tab PO SCH ×2 (09:49→18:02)
--- NOTE | 2018-11-15 09:56 | US ---
PROCEDURE: Bilateral carotid artery duplex ultrasound HISTORY: Carotid stenosis PHYSICIAN(S): Kermit Albert MD. TECHNIQUE: Duplex sonography and color-flow Doppler were used to evaluate the carotid bifurcations and limited segments of the vertebral arteries bilaterally. FINDINGS: There is mild smooth heterogeneous plaque noted at the carotid bifurcations bilaterally. The peak systolic velocity in the proximal right internal carotid artery is 89 cm/sec. This corresponds to a 20 to 39% proximal right ICA stenosis. Normal systolic velocities are noted in the proximal right external carotid artery. There is antegrade flow in the right vertebral artery. The peak systolic velocity in the proximal left internal carotid artery is 88 cm/sec. This corresponds to a 20 to 39% proximal left ICA stenosis. Normal systolic velocities are noted in the proximal left external carotid artery. There is antegrade flow in the left vertebral artery. IMPRESSION: 1. Bilateral 20-39% proximal ICA stenoses. 2. Antegrade flow in both vertebral arteries.
--- NOTE | 2018-11-15 11:31 | CP.PCM.CON ---
History of Present Illness - History of Present Illness History of Present Illness: Thanh Regan PGY2 Heme/Onc Consult Note for Dr. Cervantes 78-year-old F with PMH of HTN, hemochromatosis, and diabetes who presents to [facility] s/p syncopal episode. Heme/onc is consulted for history of hemochromatosis. Patient denies bowel and/or urine incontinence, biting of tongue, fatigue, drowsiness, numbness/tingling in extremities, headache, chest pain, shortness of breath, abdominal pain, fever, chills, nausea/vomiting/diarrhea. She complains of paraspinal tenderness from the fall. PMH: hemochromatosis, Diabetes, HTN PSH: back surgery, ex lap (adenoma resection) Allergies: NKDA Medications: per MAR Social Hx: Denies ETOH, Tobacco, and Recreational Drug use Family Hx: Unknown Review of Systems - Review of Systems Review of Systems: Negative except that mentioned in HPI Past Patient History - Infectious Disease Hx of Infectious Diseases: None - Past Social History Smoking Status: Never Smoked - CARDIAC Hx Cardiac Disorders: Yes Hx Hypertension: Yes - PULMONARY Hx Respiratory Disorders: No - NEUROLOGICAL Hx Neurological Disorder: No - HEENT Hx HEENT Problems: Yes Hx Deafness: Yes - RENAL Hx Chronic Kidney Disease: No - ENDOCRINE/METABOLIC Hx Diabetes Mellitus Type 2: Yes - HEMATOLOGICAL/ONCOLOGICAL Hx Blood Disorders: No - INTEGUMENTARY Hx Dermatological Problems: No - MUSCULOSKELETAL/RHEUMATOLOGICAL Hx Musculoskeletal Disorders: No Hx Falls: Yes - GASTROINTESTINAL Hx Gastrointestinal Disorders: No - GENITOURINARY/GYNECOLOGICAL Hx Genitourinary Disorders: No - PSYCHIATRIC Hx Emotional Abuse: No Hx Physical Abuse: No Hx Substance Use: No - SURGICAL HISTORY Hx Surgeries: Yes Hx Appendectomy: Yes - ANESTHESIA Hx Anesthesia Reactions: No Hx Malignant Hyperthermia: No Meds Home Medications: Home Medication List Medication Instructions Recorded Confirmed Type Cefpodoxime [Vantin] 100 mg PO Q12 #4 tab 11/14/18 Rx Ibuprofen [Motrin Tab] 400 mg PO Q6H PRN #20 tab 11/15/18 Rx amLODIPine [Norvasc] 2.5 mg PO DAILY #14 tab 11/15/18 Rx Allergies/Adverse Reactions: Allergies Allergy/AdvReac Type Severity Reaction Status Date / Time No Known Allergies Allergy Verified 11/12/18 19:22 - Medications Medications: Current Medications Acetaminophen (Tylenol 325mg Tab) 650 mg PO Q6H PRN PRN Reason: Pain, Mild (1-3) Last Admin: 11/14/18 21:36 Dose: 650 mg Cefpodoxime Proxetil (Vantin) 100 mg PO Q12 [facility]; Protocol Stop: 11/16/18 22:01 Last Admin: 11/15/18 09:48 Dose: 100 mg Dextrose (Dextrose 50% Inj) 0 ml IV STAT PRN; Protocol PRN Reason: Hypoglycemia Protocol Ezetimibe (Zetia) 10 mg PO DAILY [facility] Last Admin: 11/15/18 09:50 Dose: 10 mg Famotidine (Pepcid) 20 mg PO BID [facility] Last Admin: 11/15/18 09:48 Dose: 20 mg Dextrose (Dextrose 5% In Water 1000 Ml) 1,000 mls @ 0 mls/hr IV .Q0M PRN; Protocol PRN Reason: Hypoglycemia Protocol Insulin Human Regular (Humulin R Med) 0 units SC ACHS [facility]; Protocol Last Admin: 11/15/18 08:29 Dose: 3 unit Lidocaine (Lidoderm) 1 ea TD DAILY [facility] Last Admin: 11/15/18 09:48 Dose: 1 ea Lisinopril (Zestril) 10 mg PO DAILY [facility] Last Admin: 11/15/18 09:49 Dose: 10 mg Multivitamins/Minerals (Therapeutic-M Tab) 1 tab PO BID [facility] Last Admin: 11/15/18 09:49 Dose: Not Given Sertraline HCl (Zoloft) 50 mg PO DAILY [facility] Last Admin: 11/15/18 09:50 Dose: 50 mg Physical Exam - Constitutional Appears: Non-toxic - Eye Exam Eye Exam: EOMI, Normal appearance - Respiratory Exam Respiratory Exam: Clear to Auscultation Bilateral, NORMAL BREATHING PATTERN - Cardiovascular Exam Cardiovascular Exam: REGULAR RHYTHM - Neurological Exam Neurological exam: Alert, Oriented x3 Results - Vital Signs Recent Vital Signs: Last Vital Signs Temp 97.9 F 11/15/18 06:00 Pulse 78 11/15/18 09:49 Resp 19 11/15/18 06:00 BP 162/87 H 11/15/18 09:49 Pulse Ox 96 11/15/18 06:00 - Labs Result Diagrams: 11/15/18 07:00 11/15/18 07:00 Labs: Laboratory Results - last 24 hr 04/11/14/18 11/15/18 16:05 21:17 07:00 WBC RBC Hgb Hct MCV MCH MCHC RDW Plt Count MPV Neut % (Auto) Lymph % (Auto) [place] % (Auto) Eos % (Auto) Baso % (Auto) Lymph # (Auto) [place] # (Auto) Eos # (Auto) Baso # (Auto) Absolute Neuts (auto) Sodium 136 Potassium 5.1 H Chloride 99 Carbon Dioxide 27 Anion Gap 15 BUN 13 Creatinine 0.6 L Est GFR ( Amer) > 60 Est GFR (Non-Af Amer) > 60 POC Glucose (mg/dL) 239 H 282 H Random Glucose 224 H Calcium 9.2 Total Bilirubin 0.6 AST 28 ALT 27 Alkaline Phosphatase 52 Total Protein 8.1 Albumin 4.4 Globulin 3.7 Albumin/Globulin Ratio 1.2 Triglycerides 223 H Cholesterol 174 LDL Cholesterol Direct 94 HDL Cholesterol 49 11/15/18 11/15/18 11/15/18 07:00 07:20 11:21 WBC 12.7 H RBC 5.22 Hgb 15.5 Hct 46.1 MCV 88.3 MCH 29.7 MCHC 33.6 RDW 13.1 Plt Count 231 MPV 9.7 Neut % (Auto) 60.0 Lymph % (Auto) 30.5 [place] % (Auto) 8.0 H Eos % (Auto) 1.3 L Baso % (Auto) 0.2 Lymph # (Auto) 3.9 H [place] # (Auto) 1.0 H Eos # (Auto) 0.2 Baso # (Auto) 0.03 Absolute Neuts (auto) 7.63 H Sodium Potassium Chloride Carbon Dioxide Anion Gap BUN Creatinine Est GFR ( Amer) Est GFR (Non-Af Amer) POC Glucose (mg/dL) 219 H 247 H Random Glucose Calcium Total Bilirubin AST ALT Alkaline Phosphatase Total Protein Albumin Globulin Albumin/Globulin Ratio Triglycerides Cholesterol LDL Cholesterol Direct HDL Cholesterol Assessment & Plan - Assessment and Plan (Free Text) Plan: Hemachromatosis-chronic -Iron and TIBC pending -no plan for phlebotomy currently -further syncope workup as per primary team and neurology -monitor Iron levels -f/u outpatient in office with Dr. Cervantes
[2018-11-15 12:16] LABS: IRON 98 ug/dL (45-180)
[2018-11-15 12:26] LABS: % IRON SATURATION 31 % (20-55); TOTAL IRON BINDING CAPACITY 315 ug/dL (265-497)
[2018-11-15 13:15] VITALS: RESP 20
[2018-11-15] MEDS ORDERED: Lidocaine 5% Patch TD SCH (14:45)
--- NOTE | 2018-11-15 15:08 | PN ---
DATE: 11/15/2018 SUBJECTIVE: The patient is sitting in a chair eating without issues. No dizziness. She did develop some hypoglycemic symptoms this morning. PHYSICAL EXAMINATION: VITAL SIGNS: Blood pressure 163/85. There are no orthostatic changes. NECK: Negative JVD. LUNGS: Without rales. HEART: S1 and S2. EXTREMITIES: Without edema. LABORATORY DATA: Hemoglobin is 15.5. Chemistries, BUN and creatinine unremarkable. Glucose 224. Echocardiogram reveals good LV function with no LV outflow obstruction. shop tech shows no arrhythmias. Carotid ultrasounds are pending. IMPRESSION: 1. Syncope. 2. Diabetes mellitus. 3. Hypertension. 4. Hypercholesterolemia. PLAN: Given these findings, that there is no cardiac cause of syncope noted. I questioned whether she had a transient episode of hypoglycemia. Given her cardiac risk factors, an outpatient stress test would be appropriate, which we can do as an outpatient. Kermit Lee MD
--- NOTE | 2018-11-15 16:01 | CP.PCM.PN ---
<Atul Gusman - Last Filed: 11/15/18 15:57> Subjective - Date & Time of Evaluation Date of Evaluation: 11/15/18 Time of Evaluation: 08:00 - Subjective Subjective: Atul Gusman PGY1 Medicine Progress Note for Dr. Person Patient was seen and examined at bedside this morning. No adverse overnight events. Afebrile overnight. However, SBP noted to be ranging 160-180s overnight. She endorses significant back pain at the lumbar spine. Otherwise, denies cp, sob, n/v/d. A full 12 point ROS was conducted and unremarkable except as stated above. Objective - Vital Signs/Intake and Output Vital Signs (last 24 hours): Temp Pulse Resp BP Pulse Ox 97.7 F 70 20 163/93 H 96 11/15/18 12:00 11/15/18 14:00 11/15/18 12:00 11/15/18 15:24 11/15/18 06:00 Intake and Output: 11/15/18 11/15/18 06:59 18:59 Intake Total 200 Output Total 0 Balance 200 - Medications Medications: Current Medications Acetaminophen (Tylenol 325mg Tab) 650 mg PO Q6H PRN PRN Reason: Pain, Mild (1-3) Last Admin: 11/15/18 12:51 Dose: 650 mg Amlodipine Besylate (Norvasc) 2.5 mg PO DAILY [facility] Last Admin: 11/15/18 15:24 Dose: 2.5 mg Cefpodoxime Proxetil (Vantin) 100 mg PO Q12 [facility]; Protocol Stop: 11/16/18 22:01 Last Admin: 11/15/18 09:48 Dose: 100 mg Dextrose (Dextrose 50% Inj) 0 ml IV STAT PRN; Protocol PRN Reason: Hypoglycemia Protocol Ezetimibe (Zetia) 10 mg PO DAILY [facility] Last Admin: 11/15/18 09:50 Dose: 10 mg Famotidine (Pepcid) 20 mg PO BID [facility] Last Admin: 11/15/18 09:48 Dose: 20 mg Dextrose (Dextrose 5% In Water 1000 Ml) 1,000 mls @ 0 mls/hr IV .Q0M PRN; Eliseo col PRN Reason: Hypoglycemia Protocol Ibuprofen (Motrin Tab) 400 mg PO Q6H PRN PRN Reason: Pain, moderate (4-7) Last Admin: 11/15/18 15:24 Dose: 400 mg Insulin Human Regular (Humulin R Med) 0 units SC ACHS [facility]; Protocol Last Admin: 11/15/18 12:48 Dose: 3 unit Lisinopril (Zestril) 10 mg PO DAILY [facility] Last Admin: 11/15/18 09:49 Dose: 10 mg Multivitamins/Minerals (Therapeutic-M Tab) 1 tab PO BID [facility] Last Admin: 11/15/18 09:49 Dose: Not Given Sertraline HCl (Zoloft) 50 mg PO DAILY [facility] Last Admin: 11/15/18 09:50 Dose: 50 mg - Labs Labs: 11/15/18 07:00 11/15/18 07:00 PT 12.9 SECONDS (9.4-12.5) H 11/12/18 19:55 INR 1.16 11/12/18 19:55 APTT 33.3 Seconds (26.9-38.3) 11/12/18 19:55 - Additional Findings Additional findings: - Constitutional Appears: Non-toxic, No Acute Distress - Head Exam Head Exam: ATRAUMATIC, NORMAL INSPECTION - Eye Exam Eye Exam: EOMI, Normal appearance, PERRL Pupil Exam: NORMAL ACCOMODATION - ENT Exam ENT Exam: Mucous Membranes Moist, Normal Exam - Neck Exam Neck exam: Positive for: Normal Inspection - Respiratory Exam Respiratory Exam: Clear to Auscultation Bilateral, NORMAL BREATHING PATTERN. absent: Chest Wall Tenderness, Decreased Breath Sounds, Rhonchi, Wheezes - Cardiovascular Exam Cardiovascular Exam: REGULAR RHYTHM, +S1, +S2 - GI/Abdominal Exam GI & Abdominal Exam: Normal Bowel Sounds, Soft. absent: Tenderness - Back Exam Back exam: FULL ROM, NORMAL INSPECTION, tenderness at the lumbar spine. - Neurological Exam Neurological exam: Alert, CN II-XII Intact, Oriented x3 - Psychiatric Exam Psychiatric exam: Normal Affect, Normal Mood - Skin Skin Exam: Dry, Intact, Normal Color, Warm Assessment and Plan - Assessment and Plan (Free Text) Assessment: Patient is a 78-year-old F with PMH of HTN, hemochromatosis, and diabetes who presented to [facility] for syncopal episode. Patient also has associated back pain from fall. No evidence of fractures. She is being managed for intractable lower back pain. Her BP is also uncontrolled during hospital course. Plan: Syncope - Head CT negative for acute abnormalities or bleed - ECHO: LVEF 64%, Grade I abnormal relaxation - Carotid duplex negative for significant stenosis - no intervention - Cardiology on consult, Dr. Lee. Recs appreciated. Patient may follow up as outpatient for [place] [facility] - c/w fall precaution - CXR negative for active disease - LOC on admission with associated fall from syncopal episode Intractable Lower Back Pain 2/2 Fall - added motrin 400mg PO q6 prn for anti-inflammatory effects - c/w tylenol prn - Lumbar and thoracic spine XR negative for fractures or acute changes - c/w fall precautions HTN - Uncontrolled - May be a component of pain, however, even when given pain medication BP is still elevated - will add norvasc 2.5 mg PO daily - Continue home medication Lisinopril 10mg PO daily - c/w lidoderm patch - continue to monitor BP UTI - c/w vantin 100mg PO q12 (started 11/13) - UA: moderate LE, positive for WBC and bacteria - Urine culture contaminated - Blood cx neg x2 (prelim) after 48 hours Diabetes Mellitus - ISS - Accuchecks ACHS - Hypoglycemic protocol - Hemoglobin A1C: 8.1 Hyperlipidemia - Continue home medication Zetia Depression - Continue home Zoloft Prophylaxis: - GI: pepcid daily - DVT: SCD PT recommends home with services Dispo: Continue monitor patient on tele at this time. Although current workup for syncope has been negative, patient has intractable back pain. Her BP has also been uncontrolled and will need to be monitored at this time. Case was discussed and reviewed with Attending Physician, Dr. Person <Luis Person - Last Filed: 11/15/18 16:30> Objective - Vital Signs/Intake and Output Vital Signs (last 24 hours): Temp Pulse Resp BP Pulse Ox 97.7 F 70 20 163/93 H 96 11/15/18 12:00 11/15/18 14:00 11/15/18 12:00 11/15/18 15:24 11/15/18 06:00 Intake and Output: 11/15/18 11/15/18 06:59 18:59 Intake Total 200 Output Total 0 Balance 200 - Medications Medications: Current Medications Acetaminophen (Tylenol 325mg Tab) 650 mg PO Q6H PRN PRN Reason: Pain, Mild (1-3) Last Admin: 11/15/18 12:51 Dose: 650 mg Amlodipine Besylate (Norvasc) 2.5 mg PO DAILY [facility] Last Admin: 11/15/18 15:24 Dose: 2.5 mg Cefpodoxime Proxetil (Vantin) 100 mg PO Q12 [facility]; Protocol Stop: 11/16/18 22:01 Last Admin: 11/15/18 09:48 Dose: 100 mg Dextrose (Dextrose 50% Inj) 0 ml IV STAT PRN; Protocol PRN Reason: Hypoglycemia Protocol Ezetimibe (Zetia) 10 mg PO DAILY [facility] Last Admin: 11/15/18 09:50 Dose: 10 mg Famotidine (Pepcid) 20 mg PO BID [facility] Last Admin: 11/15/18 09:48 Dose: 20 mg Dextrose (Dextrose 5% In Water 1000 Ml) 1,000 mls @ 0 mls/hr IV .Q0M PRN; Protocol PRN Reason: Hypoglycemia Protocol Ibuprofen (Motrin Tab) 400 mg PO Q6H PRN PRN Reason: Pain, moderate (4-7) Last Admin: 11/15/18 15:24 Dose: 400 mg Insulin Human Regular (Humulin R Med) 0 units SC ACHS [facility]; Protocol Last Admin: 11/15/18 12:48 Dose: 3 unit Lisinopril (Zestril) 10 mg PO DAILY [facility] Last Admin: 11/15/18 09:49 Dose: 10 mg Multivitamins/Minerals (Therapeutic-M Tab) 1 tab PO BID [facility] Last Admin: 11/15/18 09:49 Dose: Not Given Sertraline HCl (Zoloft) 50 mg PO DAILY [facility] Last Admin: 11/15/18 09:50 Dose: 50 mg - Labs Labs: 11/15/18 07:00 11/15/18 07:00 PT 12.9 SECONDS (9.4-12.5) H 11/12/18 19:55 INR 1.16 11/12/18 19:55 APTT 33.3 Seconds (26.9-38.3) 11/12/18 19:55 Attending/Attestation - Attestation I have personally seen and examined this patient.: Yes I have fully participated in the care of the patient.: Yes I have reviewed all pertinent clinical information, including history, physical exam and plan: Yes Notes (Text): 11/15/18 16:18 78 year old female with past medical history of hypertension and diabetes who presented with fall / syncopal episode. She complains of back pain since her fall. Xrays have been negative. CT head negative for acute findings. Echocardiogram and carotid duplex also reviewed as above. She was seen by cardiology who recommended outpatient tilt table or stress test test. Patient today still endorses back pain since her pain. Her blood pressure is also elevated, likely secondary to pain. She is on lidoderm patch. Will add motrin for pain and norvasc for hypertension. PT evaluation was appreciated. She is on antibiotics for UTI. D/c planning if blood pressure and back pain are controlled. Luis Person MD Hospitalist.
[2018-11-15 18:21] VITALS: BP 168/81; PULSE 66; TEMP 98.3; O2SAT 98
--- NOTE | 2018-11-15 19:20 | CP.PCM.PCO ---
Physician Communication Note - Physician Communication Note Physician Communication Note: for possible DC today if pain is controlled
--- NOTE | 2018-11-15 21:47 | CP.PCM.DIS ---
<Atul Gusman - Last Filed: 11/15/18 21:28> Provider - Provider Date of Admission: 11/12/18 22:57 Attending physician: Luis Person MD Primary care physician: Mia Amaro MD Consults: 11/12/18 22:57 Physician Consult Routine Comment: Consulting Provider: Kermit Lee Consulting Physician: Kermit Lee Reason for Consult: syncope; hx hemochromatosis Time Spent in preparation of Discharge (in minutes): 35 Hospital Course - Lab Results Lab Results: Micro Results 11/12/18 21:20 Blood Blood Culture - Preliminary NO GROWTH AFTER 48 HOURS 11/12/18 21:20 Blood Blood Culture - Preliminary NO GROWTH AFTER 48 HOURS 11/12/18 21:10 Urine,Clean Catch Urine Culture - Final 10-50,000 CFU/ML. MULTIPLE SPECIES. PROBABLE CONTAMINATION. Most Recent Lab Values WBC 12.7 10^3/uL (4.5-11.0) H 11/15/18 07:00 RBC 5.22 10^6/uL (3.5-6.1) 11/15/18 07:00 Hgb 15.5 g/dL (12.0-16.0) 11/15/18 07:00 Hct 46.1 % (36.0-48.0) 11/15/18 07:00 MCV 88.3 fl (80.0-105.0) 11/15/18 07:00 MCH 29.7 pg (25.0-35.0) 11/15/18 07:00 MCHC 33.6 g/dl (31.0-37.0) 11/15/18 07:00 RDW 13.1 % (11.5-14.5) 11/15/18 07:00 Plt Count 231 10^3/uL (120.0-450.0) 11/15/18 07:00 MPV 9.7 fl (7.0-11.0) 11/15/18 07:00 Neut % (Auto) 60.0 % (50.0-68.0) 11/15/18 07:00 Lymph % (Auto) 30.5 % (22.0-35.0) 11/15/18 07:00 Hyde % (Auto) 8.0 % (1.0-6.0) H 11/15/18 07:00 Eos % (Auto) 1.3 % (1.5-5.0) L 11/15/18 07:00 Baso % (Auto) 0.2 % (0.0-3.0) 11/15/18 07:00 Lymph # (Auto) 3.9 (1.2-3.4) H 11/15/18 07:00 Hyde # (Auto) 1.0 (0.1-0.6) H 11/15/18 07:00 Eos # (Auto) 0.2 (0.0-0.7) 11/15/18 07:00 Baso # (Auto) 0.03 K/mm3 (0.0-2.0) 11/15/18 07:00 Absolute Neuts (auto) 7.63 (1.4-6.5) H 11/15/18 07:00 PT 12.9 SECONDS (9.4-12.5) H 11/12/18 19:55 INR 1.16 11/12/18 19:55 APTT 33.3 Seconds (26.9-38.3) 11/12/18 19:55 Sodium 136 mmol/L (132-148) 11/15/18 07:00 Potassium 5.1 mmol/L (3.6-5.0) H 11/15/18 07:00 Chloride 99 mmol/L (98-107) 11/15/18 07:00 Carbon Dioxide 27 mmol/L (21-33) 11/15/18 07:00 Anion Gap 15 (10-20) 11/15/18 07:00 BUN 13 mg/dL (7-21) 11/15/18 07:00 Creatinine 0.6 mg/dl (0.7-1.2) L 11/15/18 07:00 Est GFR ( Amer) > 60 11/15/18 07:00 Est GFR (Non-Af Amer) > 60 11/15/18 07:00 POC Glucose (mg/dL) 200 mg/dL (65-110) H 11/15/18 16:32 Random Glucose 224 mg/dL (70-110) H 11/15/18 07:00 Hemoglobin A1c 8.1 % (4.2-6.5) H 11/13/18 06:30 Calcium 9.2 mg/dL (8.4-10.5) 11/15/18 07:00 Phosphorus 3.9 mg/dL (2.5-4.5) 11/13/18 06:30 Magnesium 1.9 mg/dL (1.7-2.2) 11/13/18 06:30 Iron 98 ug/dL (45-180) 11/15/18 11:50 TIBC 315 ug/dL (265-497) 11/15/18 11:50 % Saturation 31 % (20-55) 11/15/18 11:50 Total Bilirubin 0.6 mg/dL (0.2-1.3) 11/15/18 07:00 AST 28 U/L (14-36) 11/15/18 07:00 ALT 27 U/L (7-56) 11/15/18 07:00 Alkaline Phosphatase 52 U/L (38-126) 11/15/18 07:00 Lactate Dehydrogenase 433 U/L (333-699) 11/12/18 19:55 Total Creatine Kinase 69 U/L (35-230) 11/13/18 02:00 Troponin I < 0.01 ng/mL 11/13/18 06:30 Total Protein 8.1 g/dL (5.8-8.3) 11/15/18 07:00 Albumin 4.4 g/dL (3.0-4.8) 11/15/18 07:00 Globulin 3.7 gm/dL 11/15/18 07:00 Albumin/Globulin Ratio 1.2 (1.1-1.8) 11/15/18 07:00 Triglycerides 223 mg/dL (35-160) H 11/15/18 07:00 Cholesterol 174 mg/dL (130-200) 11/15/18 07:00 LDL Cholesterol Direct 94 mg/dL (0-129) 11/15/18 07:00 HDL Cholesterol 49 mg/dL (29-60) 11/15/18 07:00 Procalcitonin < 0.05 NG/ML (0.19-0.49) L 11/12/18 22:22 TSH 3rd Generation 1.53 mIU/mL (0.46-4.68) 11/13/18 02:00 Urine Color Light yellow (YELLOW) 11/12/18 20:47 Urine Appearance Clear (CLEAR) 11/12/18 20:47 Urine pH 6.0 (4.7-8.0) 11/12/18 20:47 Ur Specific Nickerson >= 1.030 (1.005-1.035) 11/12/18 20:47 Urine Protein Trace mg/dL (<30 mg/dL) H 11/12/18 20:47 Urine Glucose (UA) Negative mg/dL (NEGATIVE) 11/12/18 20:47 Urine Ketones Negative mg/dL (NEGATIVE) 11/12/18 20:47 Urine Blood Negative (NEGATIVE) 11/12/18 20:47 Urine Nitrate Negative (NEGATIVE) 11/12/18 20:47 Urine Bilirubin Negative (NEGATIVE) 11/12/18 20:47 Urine Urobilinogen 0.2 E.U./dL (<1 E.U./dL) 11/12/18 20:47 Ur Leukocyte Esterase Moderate Graciela/uL (NEGATIVE) H 11/12/18 20:47 Urine RBC None /hpf (0-2) 11/12/18 20:47 Urine WBC 10 - 15 /hpf (0-6) H 11/12/18 20:47 Ur Epithelial Cells None /hpf (0-5) 11/12/18 20:47 Urine Bacteria Few /hpf (NONE) 11/12/18 20:47 - Hospital Course Hospital Course: Atul Gusman, PGY1 Discharge Summary for Dr. Person Patient is a 78-year-old F with PMH of HTN, hemochromatosis, and diabetes who presented to [facility] s/p a reported syncopal episode. Patient stated she was getting ready for bed in her bedroom putting her dog's toys away, and this was the last thing she recalled. Per Patient, her next recollection was being woken up by her . Patient admitted to LOC, and endorsed hitting her head. She said she had a fall and had associated left shoulder and back pain after the incident. She denied bowel/bladder incontinence, seizure activity, or biting of the tongue. Patient was admitted for syncope. Patient was also noted to have a +UA for UTI and was also treated via Vantin. Head CT was negative for acute bleed. Patient had thoracic and lumbar spine xrays that were negative for acute changes or fractures. Patient's pain was controlled with tylenol and motrin. She also had an echo done that showed an EF 63% with no other significant changes. She also had a carotid duplex that showed bilateral 20-39% proximal ICA stenosis. Cardiology was on consult. Cardiology cleared the patient for discharge and recommend that she follow up for a tilt table study at [facility] as outpatient. Patient's back pain improved with motrin and lidoderm patch. PT recommended home with services. However, her BP was elevated (SBP 160-180s) during her hospital course. This is likely due to the pain she was having. In addition to her Lisinopril 10mg home med, she was also started on norvasc 2.5mg daily. This improved her BP as it was checked frequently by nursing staff. She also completed her course of antibiotics for her UTI for which she is not symptomatic. Upon reviewing all labs, imaging, and vital signs, patient is hemodynamically stable for discharge to home. She will follow up with her PMD upon discharge. Discharge Exam - Head Exam Head Exam: ATRAUMATIC, NORMAL INSPECTION - Eye Exam Eye Exam: EOMI, Normal appearance Pupil Exam: NORMAL ACCOMODATION - ENT Exam ENT Exam: Mucous Membranes Moist - Respiratory Exam Respiratory Exam: Clear to PA & Lateral. absent: Accessory Muscle Use, Rales, Rhonchi, Wheezes - Cardiovascular Exam Cardiovascular Exam: RRR, +S1, +S2 - GI/Abdominal Exam GI & Abdominal Exam: Normal Bowel Sounds, Soft. absent: Firm, Guarding, Rebound, Tenderness - Extremities Exam Extremities exam: normal capillary refill, normal inspection, pedal pulses present - Back Exam Additional comments: Mild tenderness to palpation along the lumbar spine. - Neurological Exam Neurological exam: Alert, CN II-XII Intact, Normal Gait, Oriented x3 - Psychiatric Exam Psychiatric exam: Normal Affect, Normal Mood - Skin Skin Exam: Dry, Intact, Normal Color, Warm Discharge Plan - Discharge Medications Prescriptions: amLODIPine [Norvasc] 2.5 mg PO DAILY #14 tab Cefpodoxime [Vantin] 100 mg PO Q12 #4 tab Ibuprofen [Motrin Tab] 400 mg PO Q6H PRN #20 tab PRN Reason: Pain, Moderate (4-7) - Follow Up Plan Condition: STABLE Disposition: HOME/ ROUTINE Instructions: Orthostatic Hypotension (DC), Syncope (ED), Syncope (DC), Syncope (GEN) Additional Instructions: - Resume home medications as prescribed by your doctor. - Follow up with your primary care doctor (Dr. Amaro) in 3-5 days of discharge. - Do not stand up too fast from a sitting or lying-down position as we have discussed. Please review the handout given to you on "Orthostatic hypotension". - Please follow up within 1 week for outpatient Tilt Table Test at [facility]. - You may take Tylenol as needed for your back pain. You are also being prescribed motrin 400mg every 6 hours as needed for your back pain. - You are being given a new medication for your blood pressure. Please take as prescribed: - Norvasc 2.5 mg once daily. - Return to the emergency room for worsening or newly concerning symptoms. Referrals: Mia Lawrence MD [Primary Care Provider] - <Luis Person - Last Filed: 11/16/18 07:36> Provider - Provider Date of Admission: 11/12/18 22:57 Attending physician: Luis Person MD Primary care physician: Mia Amaro MD Consults: 11/12/18 22:57 Physician Consult Routine Comment: Consulting Provider: Kermit Lee Consulting Physician: Kermit Lee Reason for Consult: syncope; hx hemochromatosis Hospital Course - Lab Results Lab Results: Micro Results 11/12/18 21:20 Blood Blood Culture - Preliminary NO GROWTH AFTER 3 DAYS 11/12/18 21:20 Blood Blood Culture - Preliminary NO GROWTH AFTER 3 DAYS 11/12/18 21:10 Urine,Clean Catch Urine Culture - Final 10-50,000 CFU/ML. MULTIPLE SPECIES. PROBABLE CONTAMINATION. Most Recent Lab Values WBC 12.7 10^3/uL (4.5-11.0) H 11/15/18 07:00 RBC 5.22 10^6/uL (3.5-6.1) 11/15/18 07:00 Hgb 15.5 g/dL (12.0-16.0) 11/15/18 07:00 Hct 46.1 % (36.0-48.0) 11/15/18 07:00 MCV 88.3 fl (80.0-105.0) 11/15/18 07:00 MCH 29.7 pg (25.0-35.0) 11/15/18 07:00 MCHC 33.6 g/dl (31.0-37.0) 11/15/18 07:00 RDW 13.1 % (11.5-14.5) 11/15/18 07:00 Plt Count 231 10^3/uL (120.0-450.0) 11/15/18 07:00 MPV 9.7 fl (7.0-11.0) 11/15/18 07:00 Neut % (Auto) 60.0 % (50.0-68.0) 11/15/18 07:00 Lymph % (Auto) 30.5 % (22.0-35.0) 11/15/18 07:00 Hyde % (Auto) 8.0 % (1.0-6.0) H 11/15/18 07:00 Eos % (Auto) 1.3 % (1.5-5.0) L 11/15/18 07:00 Baso % (Auto) 0.2 % (0.0-3.0) 11/15/18 07:00 Lymph # (Auto) 3.9 (1.2-3.4) H 11/15/18 07:00 Hyde # (Auto) 1.0 (0.1-0.6) H 11/15/18 07:00 Eos # (Auto) 0.2 (0.0-0.7) 11/15/18 07:00 Baso # (Auto) 0.03 K/mm3 (0.0-2.0) 11/15/18 07:00 Absolute Neuts (auto) 7.63 (1.4-6.5) H 11/15/18 07:00 PT 12.9 SECONDS (9.4-12.5) H 11/12/18 19:55 INR 1.16 11/12/18 19:55 APTT 33.3 Seconds (26.9-38.3) 11/12/18 19:55 Sodium 136 mmol/L (132-148) 11/15/18 07:00 Potassium 5.1 mmol/L (3.6-5.0) H 11/15/18 07:00 Chloride 99 mmol/L (98-107) 11/15/18 07:00 Carbon Dioxide 27 mmol/L (21-33) 11/15/18 07:00 Anion Gap 15 (10-20) 11/15/18 07:00 BUN 13 mg/dL (7-21) 11/15/18 07:00 Creatinine 0.6 mg/dl (0.7-1.2) L 11/15/18 07:00 Est GFR ( Amer) > 60 11/15/18 07:00 Est GFR (Non-Af Amer) > 60 11/15/18 07:00 POC Glucose (mg/dL) 200 mg/dL (65-110) H 11/15/18 16:32 Random Glucose 224 mg/dL (70-110) H 11/15/18 07:00 Hemoglobin A1c 8.1 % (4.2-6.5) H 11/13/18 06:30 Calcium 9.2 mg/dL (8.4-10.5) 11/15/18 07:00 Phosphorus 3.9 mg/dL (2.5-4.5) 11/13/18 06:30 Magnesium 1.9 mg/dL (1.7-2.2) 11/13/18 06:30 Iron 98 ug/dL (45-180) 11/15/18 11:50 TIBC 315 ug/dL (265-497) 11/15/18 11:50 % Saturation 31 % (20-55) 11/15/18 11:50 Total Bilirubin 0.6 mg/dL (0.2-1.3) 11/15/18 07:00 AST 28 U/L (14-36) 11/15/18 07:00 ALT 27 U/L (7-56) 11/15/18 07:00 Alkaline Phosphatase 52 U/L (38-126) 11/15/18 07:00 Lactate Dehydrogenase 433 U/L (333-699) 11/12/18 19:55 Total Creatine Kinase 69 U/L (35-230) 11/13/18 02:00 Troponin I < 0.01 ng/mL 11/13/18 06:30 Total Protein 8.1 g/dL (5.8-8.3) 11/15/18 07:00 Albumin 4.4 g/dL (3.0-4.8) 11/15/18 07:00 Globulin 3.7 gm/dL 11/15/18 07:00 Albumin/Globulin Ratio 1.2 (1.1-1.8) 11/15/18 07:00 Triglycerides 223 mg/dL (35-160) H 11/15/18 07:00 Cholesterol 174 mg/dL (130-200) 11/15/18 07:00 LDL Cholesterol Direct 94 mg/dL (0-129) 11/15/18 07:00 HDL Cholesterol 49 mg/dL (29-60) 11/15/18 07:00 Procalcitonin < 0.05 NG/ML (0.19-0.49) L 11/12/18 22:22 TSH 3rd Generation 1.53 mIU/mL (0.46-4.68) 11/13/18 02:00 Urine Color Light yellow (YELLOW) 11/12/18 20:47 Urine Appearance Clear (CLEAR) 11/12/18 20:47 Urine pH 6.0 (4.7-8.0) 11/12/18 20:47 Ur Specific Nickerson >= 1.030 (1.005-1.035) 11/12/18 20:47 Urine Protein Trace mg/dL (<30 mg/dL) H 11/12/18 20:47 Urine Glucose (UA) Negative mg/dL (NEGATIVE) 11/12/18 20:47 Urine Ketones Negative mg/dL (NEGATIVE) 11/12/18 20:47 Urine Blood Negative (NEGATIVE) 11/12/18 20:47 Urine Nitrate Negative (NEGATIVE) 11/12/18 20:47 Urine Bilirubin Negative (NEGATIVE) 11/12/18 20:47 Urine Urobilinogen 0.2 E.U./dL (<1 E.U./dL) 11/12/18 20:47 Ur Leukocyte Esterase Moderate Graciela/uL (NEGATIVE) H 11/12/18 20:47 Urine RBC None /hpf (0-2) 11/12/18 20:47 Urine WBC 10 - 15 /hpf (0-6) H 11/12/18 20:47 Ur Epithelial Cells None /hpf (0-5) 11/12/18 20:47 Urine Bacteria Few /hpf (NONE) 11/12/18 20:47 Attending/Attestation - Attestation I have personally seen and examined this patient.: Yes I have fully participated in the care of the patient.: Yes I have reviewed all pertinent clinical information, including history, physical exam and plan: Yes Notes (Text): 11/15/18 78 year old female with past medical history of hypertension and diabetes who presented with fall / syncopal episode. She complains of back pain since her fall. Xrays have been negative. CT head negative for acute findings. Echocardiogram and carotid duplex also reviewed as above. She was seen by cardiology who recommended outpatient tilt table or stress test test. She was started on lidoderm patch and motrin for back pain which improved this afternoon. BP was elevated likely secondary to her back pain. Low dose norvasc was added. She was on antibiotics for UTI. Patient is discharged home to follow up with pmd. Follow up with cardiology for outpatient stress test or tilt table test. Monitor blood pressure at home; hold BP meds if blood pressure is low. Explained to patient signs and symptoms of hypoglycemia. Luis Person MD Hospitalist.
== END 2018-11-15 20:47 | disposition home or self-care (01) | DRG 690 ==
LOC: ED 18:48 → ERH 22:57 → 2RSO 11-13 01:23
PROVIDERS: ADMIT Internal Medicine; ATTEND Internal Medicine
DX: N39.0 Urinary tract infection, site not specified (principal); R55 Syncope and collapse; R42 Dizziness and giddiness; E11.9 Type 2 diabetes mellitus without complications; I10 Essential (primary) hypertension; Z79.899 Other long term (current) drug therapy; Z79.84 Long term (current) use of oral hypoglycemic drugs; W19.XXXA Unspecified fall, initial encounter; E83.119 Hemochromatosis, unspecified; I45.10 Unspecified right bundle-branch block; I44.4 Left anterior fascicular block; M54.9 Dorsalgia, unspecified; E78.00 Pure hypercholesterolemia, unspecified; H91.90 Unspecified hearing loss, unspecified ear; I65.29 Occlusion and stenosis of unspecified carotid artery; Z85.820 Personal history of malignant melanoma of skin; Z90.49 Acquired absence of other specified parts of digestive tract; E78.5 Hyperlipidemia, unspecified; F32.89 Other specified depressive episodes

== ENCOUNTER 2018-11-25 06:46 | Outpatient (CLI) | payer MEDICARE, BC | END 2018-11-25 06:47 | disposition home or self-care (01) | LOC: CARDIO 06:46 | DX: I25.10 Atherosclerotic heart disease of native coronary artery without angina pectoris (principal) ==

== ENCOUNTER 2018-12-13 06:10 | Day surgery (SDC) | payer MEDICARE, BC ==
[2018-12-10 15:04] VITALS: BMI 26.3
[2018-12-13 07:02] LABS: BASO # 0.04 K/mm3 (0.0-2.0); BASO % 0.4 % (0.0-3.0); EOS # 0.5 (0.0-0.7); EOS % 4.4 % (1.5-5.0); HEMOGLOBIN 14.1 g/dL (12.0-16.0); LYMPH # 3.4 (1.2-3.4); LYMPH % 31.1 % (22.0-35.0); MEAN CELL VOLUME 88.7 fl (80.0-105.0); MEAN CORPUSCULAR HEMOGLOBIN 30.1 pg (25.0-35.0); MEAN PLATELET VOLUME 9.5 fl (7.0-11.0); MONO # 0.7 (0.1-0.6); RBC 4.68 10^6/uL (3.5-6.1); RED CELL DISTRIBUTION WIDTH 12.9 % (11.5-14.5)
[2018-12-13 07:13] LABS: INR 1.04; PARTIAL THROMBOPLASTIN TIME 32.5 Seconds (26.9-38.3); PROTHROMBIN TIME 11.7 SECONDS (9.4-12.5)
[2018-12-13 07:14] LABS: BLOOD UREA NITROGEN 14 mg/dL (7-21); CALCIUM 9.4 mg/dL (8.4-10.5); GFR NON-AFRICAN AMERICAN > 60; HDL CHOLESTEROL 47 mg/dL (29-60)
[2018-12-13 07:24] LABS: LDL CHOLESTEROL 70 mg/dL (0-129)
[2018-12-13] MEDS ORDERED: Lidocaine PF 2% (5 ml) Inj (For Cardiac Arrhy) ONE (07:33)
[2018-12-13] MEDS ORDERED: Iodixanol 320 MG/ML 100 ML BOTTLE IV ONE (07:34)
[2018-12-13] MEDS ORDERED: Iodixanol 320 MG/ML 200 ML BOTTLE IV ONE (07:34)
[2018-12-13] MEDS ORDERED: Iohexol 350mgl/ml 50 ML ONE (07:34)
[2018-12-13] MEDS ORDERED: Midazolam 2 MG/2 ML VIAL ONE ×2 (07:50→07:56)
[2018-12-13] MEDS ORDERED: Eptifibatide 20 mg/10mL Inj IVP ONE (08:04)
[2018-12-13] MEDS ORDERED: Sodium Chloride 0.9% 1,000 ML IV SCH (08:45)
--- NOTE | 2018-12-13 09:56 | CARD ---
APPROVED REPORT Date of service: 12/13/2018 EKG Measurement Heart [id number] <Conclusion> Normal sinus rhythm Right bundle branch block Left anterior fascicular block Bifascicular block Voltage criteria for left ventricular hypertrophy Cannot rule out Septal infarct, age undetermined Abnormal ECG
--- NOTE | 2018-12-13 10:24 | CARDCATH ---
PROCEDURE DATE: 12/13/2018 HISTORY: The patient is a 78-year-old woman who presents with angina as well as an abnormal stress test. The patient's past medical history includes diabetes mellitus, hypertension and hypercholesterolemia. Because of an abnormal stress test and her symptoms, cardiac catheterization was recommended. PROCEDURES: Left heart catheterization with coronary arteriography and left ventriculogram followed by percutaneous transluminal coronary angioplasty and stent of three lesions in the left anterior descending. The right femoral artery was cannulated with a 6-German sheath. There were no complications. The findings on catheterization revealed a left ventricle that contracted normally. Estimated ejection fraction of 60%. I performed moderate sedation which included the presence of an independent trained observer that assisted in monitoring the patient's level of consciousness and physiologic status. After administration of Versed and fentanyl, my intra-service time was 45 minutes. The left ventricle was normal. Her coronary artery was diffusely calcified and diffusely diseased. The patient had a right-dominant circulation. The RCA revealed diffuse atherosclerosis with a diffusely diseased PDA including a long 90% stenoses. The left main artery was calcified without critical lesions. The LAD revealed 80% stenoses just after the septal galley cook and diagonal vessel. There was a tandem lesion distal to that which was a long lesion, it was about 80% and then in the apical portion of the LAD is a 99% stenoses noted. The circumflex artery and obtuse marginal branches revealed diffuse atherosclerosis without a discrete critical lesion. The patient was started on intravenous Angiomax and given two boluses of Integrilin. The guiding catheter was placed in the ostium of the left main artery and 0.04 ATW wire was used to cross the multiple lesions. A 2.0 balloon was utilized to dilate multiple lesions in the LAD. This was followed by implantation of three stents in the LAD, both in the apical, mid and proximal midportion of the LAD with drug-eluting stents. Repeat coronary arteriography revealed an excellent result with no residual stenosis and KEILY III flow. AngioSeal was used to close the femoral artery site. The patient tolerated the procedure well. In summary, the procedure revealed multivessel CAD with diffuse atherosclerosis in the coronary tree. Successful PTCA and stent of three lesions in the LAD with drug-eluting stents. LV function is normal. Given these findings, the patient will remain on aspirin indefinitely and Plavix for least a year. We will bring her back in 1 week for PTCA and stent of an RCA. Kermit Lee MD
[2018-12-13] MEDS: Insulin Reg-MEDIUM-Coverage SC SCH ×3 (11:38→21:36)
--- NOTE | 2018-12-13 19:39 | HP ---
DATE OF EXAM: 12/13/2018 HISTORY OF PRESENT ILLNESS: I was asked to see her by Dr. Kermit Lee, who just finished the cardiac catheterization with three stents placed. She is now in room 273, resting comfortably in bed. She is lying flat as instructed, is to lay flat for 6 hours. She is a very sweet 78-year-old white female, who had an abnormal stress test on the outpatient with lightheadedness and was advised to get a cardiac catheterization and she did and she had three stents placed. She had a syncopal episode and weakness. She has had right partial knee replacement, left leg basal cell carcinoma. She had endoscopies. PAST MEDICAL HISTORY: She has a past medical history of diabetes, high cholesterol, hypertension, liver disease, gout, bulging disc, hemochromatosis, shingles in 1999, fatty liver, bilateral rotator cuff tears. PAST SURGICAL HISTORY: She had a colon resection x2, lumbar spine surgery x2 fusion. She has had colonoscopies, liver biopsies, bilateral rotator cuff injections, fluids removed from the right knee. SOCIAL HISTORY: She still drinks a little bit of wine. No smoking. No drugs. FAMILY HISTORY: Her father had colon cancer. There is a history of hypertension and the mom had a CVA. REVIEW OF SYSTEMS: General: Presently comfortable, lying in the bed. HEENT: No acute vision or hearing changes, but old she is very hard of hearing, you will have to talk up but she will hear you, she does have her hearing aids in. Extraocular muscles are intact. Throat is moist. Neck: Supple. Heart: Regular rate. Lungs: Decreased breath sounds, poor inspiration, but clear. Abdomen: Soft, obese, nontender. Positive bowel sounds. Extremities: No edema. Back: I cannot see the entire back, she has to lay flat. Apparently, the skin is intact from what I am told and what she tells me, no apparent rashes or ulcers appreciated. Psychiatric: She has been depressed in the past, but not now. She feels better after the cardiac cath. PHYSICAL EXAMINATION: VITAL SIGNS: A 98 temperature, 80 pulse, 18 respiratory rate, 96% O2 sat, and 142/68 blood pressure. HEENT: Head; atraumatic, normocephalic. Extraocular muscles intact. Throat is moist. NECK: Supple. HEART: Regular rate. LUNGS: Decreased breath sounds, but clear. ABDOMEN: Soft, obese, nontender. EXTREMITIES: No edema. SKIN: As far as I could tell no rashes or ulcers appreciative. LABORATORY DATA: She had multiple tests done. She has a 140 sodium, potassium 4.6, BUN 14, creatinine 0.6, GFR is greater than 60, sugar is 200, calcium is 9.4, triglycerides are 350, cholesterol is 150, LDL is 70. INR is 1.04. White count is 11, hemoglobin is 14.1, hematocrit 41.5, platelets of 255. PLAN: She is currently on aspirin, Lipitor, Plavix and IV fluids. I am holding the other medications until tomorrow. I will put her on a fingerstick, Accu-Chek coverage. She is here for coronary artery disease, status post three stents. Hopefully she will do very well. We will see it tomorrow and if we could discharge her tomorrow. Gilberto Echeverria DO
[2018-12-14 07:18] LABS: BASO # 0.02 K/mm3 (0.0-2.0); BASO % 0.2 % (0.0-3.0); EOS # 0.4 (0.0-0.7); EOS % 3.6 % (1.5-5.0); HEMOGLOBIN 13.7 g/dL (12.0-16.0); LYMPH % 28.3 % (22.0-35.0); MEAN CELL VOLUME 88.5 fl (80.0-105.0); MEAN CORPUSCULAR HEMOGLOBIN 29.7 pg (25.0-35.0); MEAN CORPUSCULAR HGB CONC 33.6 g/dl (31.0-37.0); MEAN PLATELET VOLUME 9.4 fl (7.0-11.0); MONO # 0.6 (0.1-0.6); MONO % 5.9 % (1.0-6.0); RBC 4.61 10^6/uL (3.5-6.1); RED CELL DISTRIBUTION WIDTH 12.9 % (11.5-14.5); WHITE BLOOD COUNT 10.5 10^3/uL (4.5-11.0)
[2018-12-14 07:45] LABS: ALB/GLOB RATIO 1.2 (1.1-1.8); ALBUMIN 3.9 g/dL (3.0-4.8); ALT/SGPT 26 U/L (7-56); AST/SGOT 32 U/L (14-36); BLOOD UREA NITROGEN 12 mg/dL (7-21); CALCIUM 9.1 mg/dL (8.4-10.5); GFR NON-AFRICAN AMERICAN > 60
[2018-12-14] MEDS: Insulin Reg-MEDIUM-Coverage SC SCH ×2 (07:50→13:20)
--- NOTE | 2018-12-14 11:37 | CARD ---
APPROVED REPORT Date of service: 12/14/2018 EKG Measurement Heart [id number] <Conclusion> Normal sinus rhythm Left axis deviation Left ventricular hypertrophy with QRS widening IRBB Abnormal ECG
[2018-12-14 12:42] VITALS: BP 132/80; PULSE 82; RESP 18; TEMP 97.6; O2SAT 100
--- NOTE | 2018-12-14 15:36 | PN ---
DATE: 12/14/2018 CARDIOLOGY FOLLOWUP SUBJECTIVE: The patient is chest pain free. PHYSICAL EXAMINATION: VITAL SIGNS: Blood pressure is 132/80, heart rates in the 80s. NECK: Negative JVD. LUNGS: Without rales. HEART: S1, S2. EXTREMITIES: Without edema. The right groin site is stable. LABORATORY DATA: EKG is unremarkable. BUN and creatinine are unremarkable. Glucose is 216, hemoglobin is 13.7. IMPRESSION: 1. Stable post percutaneous transluminal coronary angioplasty and stent of three lesions in the left anterior descending artery. 2. Multivessel coronary artery disease. 3. Diabetes mellitus. 4. Hypertension. 5. Hypercholesterolemia. PLAN: Given these findings, the patient is stable post PTCA and stent. Plavix has been ordered for the patient. Medications were reviewed. The patient will be brought back next week for PTCA and stent of the PDA and the RCA. Kermit Lee MD
--- NOTE | 2018-12-15 08:29 | DS ---
She was in yesterday with Dr. Kermit Lee for a cardiac catheterization. She had three stents placed and is on Ecotrin, insulin coverage, Lipitor, Plavix. She slept well. She is feeling well. She is eating well. PHYSICAL EXAMINATION: VITAL SIGNS: 98 temperature, 80 pulse, 124/66 blood pressure, 20 respiratory rate, 99% O2 sat on room air. No complaints of chest pain or shortness of breath. No abdominal pain. She is eating. She is walking. HEENT: Head is atraumatic, normocephalic. HEART: Regular rate. LUNGS: Decreased breath sounds, but clear. ABDOMEN: Soft. EXTREMITIES: No edema. LABORATORY DATA: She has 10.5 white count, 13.7 hemoglobin, 40.8 hematocrit with 239 platelets. She has 137 sodium, potassium 4.6, BUN 12, creatinine 0.6,, sugar is 216, calcium is 9.1, total bili is 0.5. AST is 32, ALT is 26, alk phos 54, total protein is 7.1, triglycerides are high at 350. I discussed change in diet, and she has to talk to her doctor about medicine, like fish oil for her high triglycerides besides changing her diet. She said she would. She is going to go back on her regular medications. She is going to see Dr. Lee this week and also her primary care doctor, Dr. Amaro, and she is being discharged. She had CAD with three stents placed. She will be discharged today after Dr. Lee sees her this morning. I discussed with the nurse. Gilberto Echeverria DO GHADA
== END 2018-12-14 16:02 | disposition home or self-care (01) ==
LOC: SDSVAS 06:10 → CATH 06:10 → 2RSO 08:45 → CATH 12-14 16:02
PROVIDERS: ATTEND Internal Medicine Cardiovascular Disease
DX: I25.119 Atherosclerotic heart disease of native coronary artery with unspecified angina pectoris (principal); E11.9 Type 2 diabetes mellitus without complications; I10 Essential (primary) hypertension; E78.00 Pure hypercholesterolemia, unspecified; M10.9 Gout, unspecified; Z82.3 Family history of stroke; Z82.49 Family history of ischemic heart disease and other diseases of the circulatory system
CPT/HCPCS: 36415 ×2; 80048; 80053; 80061; 82948 ×2; 85025 ×2; 85027; 85610; 85730; 86850; 86900; 93005 ×2; 93458; 99152; C1725; C1760; C1769 ×2; C1874 ×3; C1887; C2629; C9600; C9601; J0583; J1327; J1644; J2250; J3010; J7030; Q9966; Q9967

== ENCOUNTER 2018-12-21 06:05 | Day surgery (SDC) | payer MEDICARE, BC ==
[2018-12-17 09:25] VITALS: BMI 25.8
[2018-12-21 06:44] LABS: BASO # 0.03 K/mm3 (0.0-2.0); BASO % 0.3 % (0.0-3.0); EOS # 0.3 (0.0-0.7); EOS % 3.8 % (1.5-5.0); HEMOGLOBIN 13.7 g/dL (12.0-16.0); LYMPH # 2.6 (1.2-3.4); LYMPH % 29.7 % (22.0-35.0); MEAN CORPUSCULAR HGB CONC 34.1 g/dl (31.0-37.0); MEAN PLATELET VOLUME 9.4 fl (7.0-11.0); MONO # 0.7 (0.1-0.6); MONO % 8.1 % (1.0-6.0); RBC 4.57 10^6/uL (3.5-6.1); WHITE BLOOD COUNT 8.7 10^3/uL (4.5-11.0)
[2018-12-21] MEDS ORDERED: Lidocaine PF 2% (5 ml) Inj (For Cardiac Arrhy) ONE (06:45)
[2018-12-21] MEDS ORDERED: Iohexol 350mgl/ml 50 ML ONE (06:46)
[2018-12-21] MEDS ORDERED: Iodixanol 320 MG/ML 200 ML BOTTLE IV ONE (06:46)
[2018-12-21] MEDS ORDERED: Iodixanol 320 MG/ML 100 ML BOTTLE IV ONE (06:46)
[2018-12-21] MEDS ORDERED: Nitroglycerin 50mg in D5W 50 MG/250 ML BOTTLE IV ONE (06:47)
[2018-12-21] MEDS ORDERED: Phenylephrine 10 mg/ml Inj ONE (06:47)
[2018-12-21 07:10] LABS: INR 1.06; PARTIAL THROMBOPLASTIN TIME 33.6 Seconds (26.9-38.3)
[2018-12-21 07:14] LABS: BLOOD UREA NITROGEN 18 mg/dL (7-21); CALCIUM 9.4 mg/dL (8.4-10.5); GFR NON-AFRICAN AMERICAN > 60; HDL CHOLESTEROL 44 mg/dL (29-60)
[2018-12-21 07:16] LABS: LDL CHOLESTEROL 57 mg/dL (0-129)
[2018-12-21] MEDS ORDERED: Adenosine 90 mg/30mL IV ONE (07:59)
[2018-12-21] MEDS ORDERED: Midazolam 2 MG/2 ML VIAL ONE ×2 (08:07→08:11)
[2018-12-21] MEDS ORDERED: Sodium Chloride 0.9% 1,000 ML IV SCH (09:15)
[2018-12-21] MEDS: Insulin Reg-MEDIUM-Coverage SC SCH ×3 (12:06→22:01)
--- NOTE | 2018-12-21 12:50 | CARDCATH ---
PROCEDURE DATE: 12/21/2018 CARDIAC CATHETERIZATION AND A PERCUTANEOUS TRANSLUMINAL CORONARY ANGIOPLASTY AND STENT HISTORY The patient is a 78-year-old woman who presents for PTCA. The patient has hypertension, diabetes mellitus, and hypercholesterolemia with documented multivessel CAD. She is status post PTCA and stent of the LAD in multiple places last week and was brought back for diffusely diseased critical 95% stenoses of the RCA. PROCEDURE: The left femoral artery was cannulated with a 6-Ken[place] sheath. There were no complications. I performed moderate sedation which included the presence of an independent trained observer that assisted in monitoring the patient's level of consciousness and physiologic status. After administration of Versed and fentanyl, my intra service time was 30 minutes. The findings on catheterization revealed patent stents in the LAD in all three places in the proximal, mid and distal portion. In the midportion of the LAD, there was a long 50% stenosis which is unchanged from her previous. The RCA, which is a dominant vessel revealed diffuse atherosclerosis with a 99% stenosis in the midportion of the diffusely diseased PDA. The patient was started on intravenous Angiomax on the fluoroscopic guide, the guiding catheter was placed in the ostium of the RCA and an 0.04 ATW wire was used to cross the critical lesion in the PDA. The guiding catheter was placed in the aortic root where most of the procedure was done with aortic root injections, which revealed no aortic insufficiency. A 2.0 balloon was utilized to dilate the lesion. A long 2.0 x 22 mm drug-eluting stent was placed and deployed in the proximal portion of the PDA extending into the midportion past the critical lesion. A repeat coronary arteriography after balloon deflation revealed an excellent result with no residual stenosis and KEILY III flow. AngioSeal was used to close the left femoral artery site. The patient tolerated the procedure well. In summary, the procedure was a successful PTCA and stent of the long critically stenosed and diffusely diseased PDA lesion of the RCA. Cardiac catheterization revealed patent stents in all three sections of the LAD placed last week. There is a long mid lesion in the mid LAD of 50%, which is unchanged from previous. Given these findings, the patient will need to remain on aspirin indefinitely and Plavix for least a year. Her PRU is therapeutic. Given these findings, the patient will need to undergo a cardiac risk reduction program. Kermit Lee MD [facility] # [id number]
--- NOTE | 2018-12-21 17:35 | CARD ---
APPROVED REPORT Date of service: 12/21/2018 EKG Measurement Heart [id number] <Conclusion> Normal sinus rhythm Right bundle branch block Left anterior fascicular block Bifascicular block Voltage criteria for left ventricular hypertrophy Abnormal ECG
--- NOTE | 2018-12-21 17:43 | CARD ---
APPROVED REPORT Date of service: 12/21/2018 EKG Measurement Heart [id number] <Conclusion> Normal sinus rhythm Incomplete right bundle branch block Left anterior fascicular block Voltage criteria for left ventricular hypertrophy Abnormal ECG
--- NOTE | 2018-12-21 20:11 | HP ---
DATE OF EXAM: 12/21/2018 HISTORY OF PRESENT ILLNESS: I was called by Dr. Kermit Lee to admit her. She is status post cardiac cath with stent placement. She has had dizziness, shortness of breath and issues over the past few weeks and this is her second PTCA with stents. She has a history of syncope with a fall. She has surgery of the right partial knee replacement, facial issues, left leg basal cell removed carcinoma, endoscopy on 07/28/2018. PAST MEDICAL HISTORY: She has a past medical history of diabetes, high cholesterol, hypertension, liver disease, past history of gout, bulging disc, hematochromatosis, shingles in 1999, fatty liver, bilateral rotator cuff tears. FAMILY HISTORY: Father has got colon cancer, recent PTCA with three stents, gallbladder and causes, colon resection x2 for adenomas, lumbar spine surgery with two fusions, liver biopsy, colonoscopy, bilateral rotator cuff injections, fluid-filled right knee. History of hypertension, there is CVA with her mom. She uses a cane for fear of falling, difficulty with stairs. She has hearing aids. She wears glasses. Alert and oriented x3. Disc disease history, partial dentures. Urgency with urination. There is some depression in the history. SOCIAL HISTORY: Occasional wine. No smoking. No drugs. REVIEW OF SYSTEMS: She also is comfortable, lying in the bed right now, status post cardiac cath and stent placement. No acute vision or hearing changes. No sore throat. No chest pain at this time. No shortness of breath. No abdominal pain. No extremity pain. MEDICATIONS: She is on Ecotrin, insulin, Lipitor, Plavix and IV fluids at this time with insulin coverage. I will watch her overnight. PHYSICAL EXAMINATION: VITAL SIGNS: She has a 98.8 temperature, 76 pulse, 136/81 blood pressure, 18 respiratory rate, and 96% O2 sat on room air. HEENT: Head is atraumatic, normocephalic. Extraocular muscles are intact. Throat is moist. NECK: Supple. HEART: Regular rate. LUNGS: Decreased breath sounds, but clear. ABDOMEN: Soft, obese, nontender. EXTREMITIES: No edema from what I could tell. NEUROLOGIC: Cranial nerves II through XII grossly intact. GCS is 15. SKIN: As far as I could see is intact with no ulcers or rashes. She is comfortable, tired. She will lay flat for 6 hours. LABORATORY DATA: She has a 136 sodium, potassium 4.5, BUN 18, creatinine 0.7, GFR is greater than 60, sugar is 151, calcium is 9.4, triglycerides 145, cholesterol is 122, LDL is 57, HDL is 44. INR is 1.06. White count is 8.7, hemoglobin 13.7, hematocrit 40.2, platelets of 265. ASSESSMENT AND PLAN: She has all her labs for tomorrow, she will be lying flat in bed. Discussed with Dr. Lee at length. We will watch her closely. Status post cardiac catheterization. Gilberto Echeverria DO MTDD
[2018-12-22 03:06] VITALS: RESP 20
[2018-12-22 07:34] VITALS: BP 102/64; PULSE 74; TEMP 98.2; O2SAT 95
[2018-12-22 07:56] LABS: BASO # 0.02 K/mm3 (0.0-2.0); BASO % 0.3 % (0.0-3.0); EOS # 0.3 (0.0-0.7); EOS % 4.4 % (1.5-5.0); HEMOGLOBIN 13.1 g/dL (12.0-16.0); LYMPH # 1.8 (1.2-3.4); MEAN CELL VOLUME 88.7 fl (80.0-105.0); MEAN CORPUSCULAR HEMOGLOBIN 29.6 pg (25.0-35.0); MEAN CORPUSCULAR HGB CONC 33.4 g/dl (31.0-37.0); MEAN PLATELET VOLUME 9.4 fl (7.0-11.0); MONO # 0.6 (0.1-0.6); MONO % 7.7 % (1.0-6.0); RBC 4.42 10^6/uL (3.5-6.1); WHITE BLOOD COUNT 7.8 10^3/uL (4.5-11.0)
[2018-12-22 08:07] LABS: ALB/GLOB RATIO 1.2 (1.1-1.8); ALBUMIN 3.8 g/dL (3.0-4.8); ALT/SGPT 29 U/L (7-56); AST/SGOT 27 U/L (14-36); BLOOD UREA NITROGEN 10 mg/dL (7-21); GFR NON-AFRICAN AMERICAN > 60
--- NOTE | 2018-12-22 08:28 | PN ---
DATE: 12/22/2018 CARDIOLOGY FOLLOWUP SUBJECTIVE: The patient is chest pain free. PHYSICAL EXAMINATION: VITAL SIGNS: Blood pressure 102/64, heart rate in the 70s. NECK: Negative JVD. HEART: S1, S2. LUNGS: Without rales. EXTREMITIES: Without edema. LABORATORY DATA: Glucose 175. IMPRESSION: 1. Stable post percutaneous transluminal coronary angioplasty and stent of an right carotid artery. 2. Multivessel coronary artery disease. 3. Diabetes mellitus. 4. Hypercholesterolemia. PLAN: Given these findings, the patient is stable post PTCA and stent. From a cardiac perspective, the patient can be discharged. Followup instructions have been given to the patient in detail. Kermit Lee MD
[2018-12-22] MEDS: Insulin Reg-MEDIUM-Coverage SC SCH (08:40)
--- NOTE | 2018-12-23 02:39 | DS ---
HISTORY OF PRESENT ILLNESS: She came in yesterday with Dr. Kermit Lee with a cardiac catheterization, stent placement. She did very well overnight. She is being discharged today. She is going to have Lipitor 40 mg one daily added to a list of medication that she takes. Dr. Lee asked me to add this to a list. She is on Plavix also and the same regular home medications. She is comfortable. She is feeling well, eating well, and walking well. No chest pain. No shortness of breath. No abdominal pain. PHYSICAL EXAMINATION: VITAL SIGNS: She has a 98.2 temperature, 74 pulse, 102/64 blood pressure, 20 respiratory rate, and 95% O2 sat on room air. HEENT: Head is atraumatic and normocephalic. HEART: Regular rate. LUNGS: Decreased breath sounds, but clear. ABDOMEN: Soft. EXTREMITIES: No edema. LABORATORY DATA: She has a 7.8 white count, 13.1 hemoglobin, 39.2 hematocrit with 238 platelets. She has a 133 sodium, potassium 4.3, BUN 10, creatinine 0.5, GFR is greater than 60, sugar is 175, calcium is 9, and total bili is 0.5. AST is 27, ALT is 29, alk phos 52, and total protein is 7. Cholesterol was 122 and triglycerides 145. ASSESSMENT AND PLAN: She will follow up with Dr. Lawrence, her primary care doctor this week and Dr. Lee. Lissett Guy with coronary artery disease with stent placement and add Lipitor to her . Gilberto Echeverria DO MTDKalpana
== END 2018-12-22 11:32 | disposition home or self-care (01) ==
LOC: CATH 06:05 → 2RSO 09:21 → CATH 12-22 11:32
PROVIDERS: ATTEND Internal Medicine Cardiovascular Disease
DX: I25.10 Atherosclerotic heart disease of native coronary artery without angina pectoris (principal); I10 Essential (primary) hypertension; E11.9 Type 2 diabetes mellitus without complications; E78.00 Pure hypercholesterolemia, unspecified; I45.10 Unspecified right bundle-branch block; M10.9 Gout, unspecified; Z79.4 Long term (current) use of insulin; Z79.82 Long term (current) use of aspirin; Z96.651 Presence of right artificial knee joint
CPT/HCPCS: 36415 ×2; 80048; 80053; 80061; 82948 ×2; 85025 ×2; 85027; 85576; 85610; 85730; 86850; 86900; 93005; 93454; 99152; C1725; C1760; C1769 ×2; C1874; C1887; C2629; C9600; J0583; J1644; J2250; J3010; J7030; Q9966; Q9967